=== PATIENT | female | born 1995 | race Caucasian/White ===

== ENCOUNTER → 2022-02-16 17:42 | Outpatient (CLI) | payer BC, SELFPAY ==
--- NOTE | ~2022-02-16 | XR_ITS ---
EXAMINATION: XR sacrum coccyx min 2V DATE: 02/16/2022 18:33 INDICATION: Tailbone pain. TECHNIQUE: 3 views of the sacrum and coccyx were obtained. COMPARISON: None. FINDINGS: Bone alignment is normal. No fracture. The sacroiliac joints are normal. IMPRESSION: 1. Normal sacrum and coccyx. Reviewed, dictated and finalized at location A.
== END ==
PROVIDERS: PCP Family Medicine; Visit Provider Chiropractor
DX: M53.3 Sacrococcygeal disorders, not elsewhere classified (principal)
CPT/HCPCS: 72220

== ENCOUNTER 2022-12-18 14:56 | Emergency (ER) | payer BC, SELFPAY ==
[2022-12-18] VITALS (7 sets, daily range): BP systolic 113–141; BP diastolic 66–97; PULSE 60–77; RESP 15–18; TEMP 36.7–36.8; O2SAT 94–100
--- NOTE | ~2022-12-18 | CT_ITS ---
EXAMINATION: CTA chest PE protocol DATE: 12/18/2022 19:32 INDICATION: Shortness of breath. Chest pain. TECHNIQUE: Computed tomography angiography (CTA) of the chest was performed with 100 mL Omnipaque-350 intravenous contrast timed to evaluate the pulmonary arteries. Coronal maximum intensity projection 3D-reconstructions were created by the technologist. Automated exposure control and iterative reconst ruction technique were employed. The dose-length product was 473.37 mGy-cm. COMPARISON: CT abdomen and pelvis 07/01/2013 FINDINGS: The lungs demonstrate minimal atelectasis. No pleural effusion. The heart size is normal. N o pericardial effusion. There is a small sliding hiatal hernia. There is no pulmonary embolus. The cirilo wan are unremarkable. IMPRESSION: 1. No pulmonary embolus. 2. Small sliding hernia. Reviewed, dictated and finalized at location A. FENCE ERECTOR
--- NOTE | 2022-12-18 17:42 | ED.ABDPAIN ---
HPI - Abdominal Pain General Chief Complaint: Abdominal Pain Stated Complaint: RIGHT FLANK PAIN Time Seen by Provider: 12/18/22 17:36 Source: patient Mode of arrival: ambulatory Limitations: no limitations History of Present Illness HPI narrative: This is a 27 year old , 35 weeks , that presents to the ER for right upper quadrant pain. Ongoing since this morning. Associated with some lightheadedness. Reports the pain is worse with deep breathing and some movement. She has not taken anything for pain. Reports she felt like she was a little more short of breath today as well. She called her OB who prompted her to be seen in the ER to rule out a PE. Denies fever, pelvic cramping, nausea, vomiting, vaginal bleeding, dysuria or hematuria. Related Data Home Medications Medication Instructions Recorded Confirmed aspirin 81 mg tablet,delayed 81 mg PO DAILY 10/06/22 release (Adult Low Dose Aspirin) prenat.vits,prasanna,hxq-yzzr-clqsq 1 tablet PO DAILY 10/06/22 Allergies Allergy/AdvReac Type Severity Reaction Status Date / Time No Known Allergies Allergy Unknown Verified 10/06/22 08:31 Review of Systems Review of Systems: CONSTITUTIONAL: Denies fever, CARDIOVASCULAR: Reports chest pain. Denies edema. RESPIRATORY: Reports dyspnea. Denies cough GASTROINTESTINAL: Reports abdominal pain. Denies nausea, vomiting, or diarrhea. GENITOURINARY: Denies dysuria or hematuria. All systems reviewed & are unremarkable except as noted in HPI and below PMFSH Past Medical History Medical History (Updated 12/18/22 @ 20:56 by Jen Kenney PA-C) No active medical problems Family History Family History (Updated 10/06/22 @ 08:33 by Sujata Laura [facility]) Father Malignant neoplasm of prostate Mother Depression Bipolar disorder Other Hypertension Social History Social History (Updated 10/06/22 @ 08:34 by Sujata Laura [facility]) Smoking status: Never smoker Second hand tobacco smoke exposure: No Alcohol intake: never Substance use: never Substance use type: does not use Exam Narrative: GENERAL: Well-appearing, well-nourished, and in no acute distress. HEAD: Normocephalic, atraumatic. EYES: EOMI. CHEST: Clear to auscultation. No respiratory distress. No wheezes rales or rhonchi HEART: Regular rate and rhythm. No murmur heard. Normal peripheral pulses. ABDOMEN: Gravid, nontender, nondistended, normal active bowel sounds. EXTREMITIES: Normal range of motion. No edema. SKIN: Warm, dry, no rash. NEURO: No focal deficits. Alert and oriented x3. PSYCH: Normal mood and affect Course Vital Signs Vital signs: Vital Signs Temperature 98.0 F 12/18/22 15:31 Pulse Rate 77 12/18/22 15:31 Respiratory Rate 15 12/18/22 15:31 Blood Pressure 140/97 H 12/18/22 15:31 Pulse Oximetry 100 12/18/22 15:31 Oxygen Delivery Room Air 12/18/22 15:31 Temperature 98.3 F 12/18/22 17:07 Pulse Rate 63 12/18/22 20:29 Respiratory Rate 16 12/18/22 20:29 Blood Pressure 132/84 12/18/22 20:29 Pulse Oximetry 100 12/18/22 20:29 Oxygen Delivery Room Air 12/18/22 18:12 MDM - Abdominal Pain MDM Narrative Medical decision making narrative: 27-year-old female, about 35 weeks , presents to the emergency department for right-sided chest pain ongoing today. Reporting some associated shortness of breath. Pain was worse with breathing and movement. She is afebrile and nontoxic-appearing. Oxygen saturation is normal on room air. She is not tachycardic. Lungs are clear on exam. Her initial blood pressure was mildly elevated, this down trended without intervention. CBC with mild leukocytosis to 11.6. Her hemoglobin is normal. Metabolic panel without concerning findings. EKG without concerning changes and baseline troponin is negative. Urine with greater than 75 white blood cells, but also many squamous epithelial cells. This will be sent for culture. Her D-dimer was elevated,
--- NOTE | 2022-12-18 18:01 | ECG_ITS ---
Measurements Intervals [place] Rate: 60 P: 45 [place]: 127 QRS: 71 QRSD: 89 T: 29 QT: 423 QTc: 425 Interpretive Statements SINUS RHYTHM BORDERLINE ST-T WAVE ABNORMALITY- ANT/INF LEADS BORDERLINE ECG NO PREVIOUS ECG AVAILABLE FOR COMPARISON Electronically Signed On 12-18-2022 19:46:34 EMAIL PRODUCER by Stanley Gonzalez D.O.
[2022-12-18 18:22] LABS: Basophils Absolute Auto 0.1 K/mm3 (0.0-0.1); Basophils Percent Auto 0.4 % (0.2-1.2); Eosinophils Absolute Auto 0.1 K/mm3 (0-0.3); Eosinophils Percent Auto 0.8 % (0-4.4); Hemoglobin 12.8 g/dL (12.0-15.0); Immature Granulocyte Absolute 0.02 K/mm3 (0.00-0.031); Immature Granulocyte Percent A 0.2 % (0-0.5); Lymphocytes Absolute Auto 2.66 K/mm3 (0.9-3.2); Mean Corpuscular HGB Conc 33.7 g/dl (32-36); Mean Corpuscular Hemoglobin 28.7 pg (26-34); Mean Corpuscular Volume 85.2 fl (80-100); Monocytes Absolute Auto 0.7 K/mm3 (0.1-0.6); Monocytes Percent Auto 6.1 % (2.6-8.5); Neutrophils Percent Auto 69.5 % (45.5-73.1); Platelet Count Result 326 k/mm3 (150-375); Red Blood Count 4.46 M/mm3 (4.2-5.4); Red Cell Distribution Width 12.2 % (11.5-14.5); White Blood Count 11.6 K/mm3 (4.5-10.0)
[2022-12-18 18:27] LABS: Appearance Urine Slightly Cloudy (Clear); Bilirubin Urine Negative (Negative); Blood Urine Trace-intact (Negative); Color Urine Yellow (Yellow); Glucose Urine UA Negative (Negative); Ketones Urine Negative (Negative); Leukocyte Esterase Ur 3+ LEU/UL (Negative); Nitrate Urine Negative (Negative); Protein Urine Negative (Negative); Urobilinogen Urine 0.2 mg/dL (<2.0); pH Urine 6.5 (5.0-9.0)
[2022-12-18 18:32] LABS: Partial Thromboplastin Time 27.6 SECONDS (22.3-36.8)
[2022-12-18 18:33] LABS: Bacteria Urine Trace /hpf; RBC Urine 21-50 /hpf (0-2); Squamous Epithelial Cell Urine Many /hpf (Few); WBC Urine >75 /hpf
[2022-12-18 18:34] LABS: Add Urine Microscopic? YES
[2022-12-18 18:38] LABS: Alanine Aminotransferase 26 U/L (6-35); Albumin Level 3.8 g/dL (3.5-5.1); Alkaline Phosphatase 175 U/L (38-126); Anion Gap 8 mmol/L (8-16); Aspartate Amino Transferase 29 U/L (14-36); Bilirubin,Total 0.4 mg/dL (0.2-1.3); Blood Urea Nitrogen 8 mg/dL (7-17); Calcium 8.8 mg/dL (8.4-10.2); Carbon Dioxide 23 mmol/L (22-30); Chloride 103 mmol/L (98-107); Estimated CRCL calculation 110 ml/min; Estimated Glomerular Filt Rate > 60; Glucose 76 mg/dL (65-110); Lipase 51 U/L (23-300); Potassium 3.5 mmol/L (3.4-5.0); Sodium 134 mmol/L (137-145)
[2022-12-18] MEDS: SODIUM CHLORIDE 0.9% IV 500 ML 999 ML IV CONT (18:39)
--- NOTE | 2022-12-18 18:39 | PC.NURSE ---
OB at bedside to monitor baby.
[2022-12-18 18:41] LABS: D Dimer 1.21 ug/mL (<0.48)
[2022-12-18 18:48] LABS: Troponin I < 0.012 ng/mL (0.000-0.034)
--- NOTE | 2022-12-18 19:06 | PC.NURSE ---
182- RN at bedside to perform NST. 1849- NST was reactive, Dr. Edwards notified. Dr. Edwards notified of contractions during NST. No additional orders for monitoring. 1850- labor precautions were reviewed with patient. Patient stated understanding of labor precautions. HIP precautions reviewed with patient and patient states understanding. Patient denies any further questions.
== END 2022-12-18 21:17 | disposition home or self-care (01) ==
PROVIDERS: Emergency Provider Physician Assistant; PCP Family Medicine
DX: O26.893 Other specified pregnancy related conditions, third trimester (principal); R07.89 Other chest pain; O99.613 Diseases of the digestive system complicating pregnancy, third trimester; K44.9 Diaphragmatic hernia without obstruction or gangrene; R94.31 Abnormal electrocardiogram [ECG] [EKG]; Z3A.35 35 weeks gestation of pregnancy
CPT/HCPCS: 36415; 71275; 80053; 81001; 83690; 84484; 85025; 85380; 85610; 85730; 87086; 87088; 93005; 96361; 96365; 99284; J0131; J7040; Q9967

== ENCOUNTER 2023-01-03 12:05 | Inpatient (IN) | payer BC, SELFPAY ==
[2023-01-03] VITALS (41 sets, daily range): BP systolic 119–151; BP diastolic 57–97; PULSE 58–97; RESP 18–20; TEMP 36.5–37.1; BMI 31.0
[2023-01-03 10:48] LABS: Basophils Absolute Auto 0.1 K/mm3 (0.0-0.1); Basophils Percent Auto 0.6 % (0.2-1.2); Eosinophils Absolute Auto 0.1 K/mm3 (0-0.3); Eosinophils Percent Auto 1.1 % (0-4.4); Hematocrit 37.7 % (37.0-47.0); Hemoglobin 12.7 g/dL (12.0-15.0); Immature Granulocyte Absolute 0.03 K/mm3 (0.00-0.031); Immature Granulocyte Percent A 0.3 % (0-0.5); Lymphocytes Absolute Auto 1.85 K/mm3 (0.9-3.2); Lymphocytes Percent Auto 20.4 % (18.3-44.2); Mean Corpuscular HGB Conc 33.7 g/dl (32-36); Mean Corpuscular Volume 86.1 fl (80-100); Mean Platelet Volume 10.7 fl (7.4-10.4); Monocytes Absolute Auto 0.7 K/mm3 (0.1-0.6); Monocytes Percent Auto 7.3 % (2.6-8.5); Neutrophils Absolute Auto 6.4 K/mm3 (1.3-6.7); Neutrophils Percent Auto 70.3 % (45.5-73.1); Platelet Count Result 363 k/mm3 (150-375); Red Blood Count 4.38 M/mm3 (4.2-5.4); Red Cell Distribution Width 12.6 % (11.5-14.5); White Blood Count 9.1 K/mm3 (4.5-10.0)
[2023-01-03 10:48] LABS: Appearance Urine Clear (Clear); Bilirubin Urine Negative (Negative); Blood Urine Trace-intact (Negative); Color Urine Yellow (Yellow); Glucose Urine UA Negative (Negative); Ketones Urine Negative (Negative); Leukocyte Esterase Ur 2+ LEU/UL (NEGATIVE); Nitrate Urine Negative (Negative); Protein Urine Negative (Negative); Specific Grav Ur 1.015 (1.001-1.035); Urobilinogen Urine 0.2 mg/dL (<2.0); pH Urine 7.5 (5.0-9.0)
[2023-01-03 10:55] LABS: Bacteria Urine Trace /hpf; Creatinine Urine 18.9 mg/dL; Squamous Epithelial Cell Urine Many /hpf (Few); Total Protein Urine Random 13 mg/dL; Ur Ttl Prot Creatinine Ratio 0.69 mg/mg (0-0.20); WBC Urine 21-30 /hpf (0-3)
[2023-01-03 10:56] LABS: Add Urine Microscopic? YES
[2023-01-03 10:59] LABS: Alanine Aminotransferase 32 U/L (6-35); Albumin Level 4.3 g/dL (3.5-5.1); Alkaline Phosphatase 227 U/L (38-126); Anion Gap 7 mmol/L (8-16); Aspartate Amino Transferase 34 U/L (14-36); Bilirubin,Total 0.4 mg/dL (0.2-1.3); Blood Urea Nitrogen 11 mg/dL (7-17); Calcium 9.2 mg/dL (8.4-10.2); Carbon Dioxide 26 mmol/L (22-30); Chloride 99 mmol/L (98-107); Estimated Glomerular Filt Rate > 60; Glucose 80 mg/dL (65-110); Potassium 3.8 mmol/L (3.4-5.0); Sodium 132 mmol/L (137-145); Uric Acid 6.4 mg/dL (2.5-7.5)
--- NOTE | 2023-01-03 14:05 | LDADM ---
This patient, Jennie Diaz, was admitted to Labor/Delivery/Recovery 105 on 01/03/23 at 12:05. Plans for labor, pain management and were discussed with patient. Patient/family oriented to hospital policies and general routines including ID bracelet, bed and alarms, visiting hours, pain management, procedures, bathroom and other care routines, personal items, smoking policy, room service/diet and guest tray routines, infant security routines, and visiting hours. Patient/Family are encouraged to report perceived risks to care and to ask questions if they do not understand what they are told or what they should do. See OBIX for further documentation.
[2023-01-03] MEDS: LACTATED RINGERS 1,000 ML 125 ML IV CONT (14:39)
[2023-01-03] MEDS: OXYTOCIN 30 UNITS/NS 500 ML 30 UNITS/500 ML BAG IV CONT (14:39)
--- NOTE | 2023-01-03 21:05 | WPDANESEPN ---
Anes - Epidural Procedure Note Date/Time: 01/03/23 21:05 Consent: I have discussed with the patient/family/POA, the placement of an epidural catheter and the use of epidural narcotic/local anesthetic for labor analgesia and/or postoperative pain management, including associated potential risks, benefits, complications and side effects. I have discussed alternative methods of labor analgesia and/or postoperative pain management. The patient/family/POA, understand(s) and wish(es) to proceed with epidural narcotic/local anesthetic for labor analgesia and/or postoperative pain management. Time-Out: A pre-procedural Time-Out was completed immediately before starting the procedure and confirmed: Patient Identification, Site, Procedure, Patient Position and the Availability of Requisite Equipment. Clinical Indications: Pain c contractions Epidural Insertion Note Patient position: sitting Skin prep: chlorhexidine and sterile drape Needle: 18g Tuohy-Schliff Catheter: 20g Unstyleted Technique: Loss of resistance. Level of insertion: L4/5 Catheter skin dea (cm): 6 Length in epidural space (cm): 11 Skin anesthesia: lidocaine 1% Test dose: 1.5% Lidocaine with 1:692030 Epi, negative for subarachnoid Inj and negative for intravascular Inj Time of test dose: 20:49 Observations: tolerated well
[2023-01-04] VITALS (68 sets, daily range): BP systolic 108–155; BP diastolic 53–120; PULSE 59–98; RESP 14–16; TEMP 36.2–37; O2SAT 93–100
--- NOTE | 2023-01-04 07:07 | WPDOBADMIT ---
Obstetrics - Admit Note Admission Note: record reviewed. No pertinent additions to the history and/or any subsequent changes in the physical findings that are not consistent with the expected course of the were found. Pt admitted to for IOL, Pt has had 2 elevated blood pressures over 4 hours apart and had blurry vision all day Monday, pt currently denies michel, epigastric pain. PCR >0.6, Dr. Ortiz aware and co managing care. SVE 3/70/-2 AROM clear odorless fluid, anticipate vaginal delivery Additions to the history and/or subsequent changes in the physical findings follow. None.
[2023-01-04] MEDS: diphenhydrAMINE HCl INJ 50 MG/ML VIAL 25 MG IV PUSH (16:12)
[2023-01-04] MEDS: ONDANSETRON INJ 4 MG/2 ML VIAL IV PUSH (16:17)
[2023-01-04 16:22] LABS: Rapid Plasma Reagin Non-Reactive (NonReactive)
[2023-01-04] MEDS: LACTATED RINGERS 1,000 ML 125 ML IV CONT (17:11)
[2023-01-04] MEDS: OXYTOCIN 30 UNITS/NS 500 ML 30 UNITS/500 ML BAG 999 UNITS IV CONT (18:30)
[2023-01-04] MEDS: OXYTOCIN 30 UNITS/NS 500 ML 30 UNITS/500 ML BAG 125 UNITS IV CONT (18:56)
--- NOTE | 2023-01-04 18:58 | PM.OBPRVD ---
OB - Delivery Note Procedure Delivery date: 01/04/23 Procedure: Events: Preeclampsia w/o severe features Induction method: Per Pitocin Protocol Delivery augmentation: Rupture of Membranes Delivery monitor: None Route of delivery: Laceration Description: Perineal - 2nd Degree Delivery repair: vicryl Specimen: No Quantitative Blood Loss (ml): 50 Anesthesia type: Epidural Disposition: Floor Narrative: mom and baby stable and doing skin to skin [place] Baby Date of : 01/04/23 Time of : 18:17 Weeks of gestation at delivery: 37 gender: Female Weight (pounds): 6 Weight (ounces): 13 presentation: vertex position: Left Occiput Anterior Placenta delivery description: Spontaneous Cord Vessel Description: 3 Vessels, Clamped/Cut and Delayed Cord Clamping score one minute: 7 score five minutes: 9
--- NOTE | 2023-01-04 19:55 | WPDANESEPN ---
Anes - Epidural Procedure Note Date/Time: 01/04/23 1700 Consent: I have discussed with the patient/family/POA, the placement of an epidural catheter and the use of epidural narcotic/local anesthetic for labor analgesia and/or postoperative pain management, including associated potential risks, benefits, complications and side effects. I have discussed alternative methods of labor analgesia and/or postoperative pain management. The patient/family/POA, understand(s) and wish(es) to proceed with epidural narcotic/local anesthetic for labor analgesia and/or postoperative pain management. Time-Out: A pre-procedural Time-Out was completed immediately before starting the procedure and confirmed: Patient Identification, Site, Procedure, Patient Position and the Availability of Requisite Equipment. Clinical Indications: Pain c contractions Epidural Insertion Note Patient position: sitting Skin prep: chlorhexidine and sterile drape Needle: 18g Tuohy-Schliff Catheter: 20g Unstyleted Technique: Loss of resistance. Level of insertion: L3/4 Catheter skin dea (cm): 4 Length in epidural space (cm): 9 Skin anesthesia: lidocaine 1% Test dose: 1.5% Lidocaine with 1:967730 Epi, negative for subarachnoid Inj and negative for intravascular Inj Time of test dose: 17:04 Observations: tolerated well Complications: none
[2023-01-04] MEDS: WITCH HAZEL 40 PADS 1 PAD TOPICAL (21:25)
[2023-01-04] MEDS: BENZOCAINE 20% AER SPR (*SP) 56 GM CAN 1 SPRAY TOPICAL (21:25)
--- NOTE | 2023-01-04 21:30 | PC.NURSE ---
Patient transferred to post room #281 via wheelchair. Support person present. Oriented to unit, room, information board, rooming in, admission packet and security measures. Patient verbalizes understanding.
[2023-01-04] MEDS: IBUPROFEN 600 MG TABLET PO (23:57)
[2023-01-05 04:15] VITALS: BP 124/71; PULSE 58; RESP 16; TEMP 36.6; O2SAT 98
[2023-01-05 05:32] LABS: Hematocrit 31.2 % (37.0-47.0); Hemoglobin 10.5 g/dL (12.0-15.0)
--- NOTE | 2023-01-05 07:30 | PC.NURSE ---
PT introductions made and plan of care discussed per post , pain management, breast feeding, daily care activities. PT and spouse both recipients of such instructions and no barriers to learning identified at this time. PT received such instructions this shift per one to one discussion, mom baby care guide and demonstrations. PT verbalized understanding of such care.
[2023-01-05 07:40] VITALS: BP 128/82; PULSE 100; RESP 15; TEMP 36.5; O2SAT 100
--- NOTE | 2023-01-05 07:59 | PM.OBPNVD ---
OB - PN: Subj Subjective Date/time seen: 01/05/23 07:59 Patient comments: no complaints baby status: doing well OB - PN: Obj Data Labs 01/05/23 04:21 01/03/23 10:28 Labs: Laboratory Results - last 24 hr 01/03/23 01/05/23 13:59 04:21 Hgb 10.5 L Hct 31.2 L RPR Non-reactive OB - PN A/P Plan day: 1 Plan: routine care Time Spent With Patient Time: Total time spent is greater than 50% in coordination of care (as documented) at patient's floor/unit and/or counseling patient: Time with patient: less than 15 minutes Review of Systems Review of Systems: All systems reviewed & are unremarkable except as noted in HPI and below Exam Narrative: Fundus firm and vaginal flow controlled. No lower ext redness, warmth, or edema. Negative homans. Denies h/a, v/d or e/p. Reflexes normal. Const: General: comfortable Chest: Breast/axilla inspection: normal inspection of the breasts Resp: Effort & Inspection: normal respiratory effort Cardio: Rate: regular rate GI: GI Palp: Yes Soft to palpation Psych: Appearance: grossly normal Affect: normal affect Attitude: cooperative Thought content: Yes Normal thought content present Judgement: Good judgement present (Psych)
--- NOTE | 2023-01-05 08:40 | WPDANLDPN2 ---
Anes-Prog Note L&D Date/Time: 01/05/23 08:40 Comfortable throughout: labor and delivery Neuraxial method: epidural Epidural/Spinal procedure site: clean & non-tender Neuro status: Neuro function grossly intact. Cardiovascular status: normal Respiratory status: normal Airway patency: baseline Mental status: baseline Post-Op hydration status: normal Vital Signs: Last Vital Signs Temp 97.9 F 01/05/23 04:15 Pulse 58 L 01/05/23 04:15 Resp 16 01/05/23 04:15 BP 124/71 01/05/23 04:15 Pulse Ox 98 01/05/23 04:15 O2 Del Method Room Air 01/03/23 14:04 Pain score (VAS): 0 I/O: Intake & Output 01/04/23 01/05/23 01/05/23 23:59 07:59 15:59 Intake Total 500 1200 Output Total 256 1900 Balance 244 -700 Post-procedural complaints: none Patient feedback: Patient satisfied with anesthetic care.
[2023-01-05] MEDS: IBUPROFEN 600 MG TABLET PO ×2 (09:26→15:19)
[2023-01-05 09:28] VITALS: PULSE 100; RESP 15; O2SAT 100
[2023-01-05] MEDS: LANOLIN (LANSINOH) 7.5 GM CREAM 1 APPLIC TOPICAL (09:28)
[2023-01-05] MEDS: DOCUSATE SODIUM 100 MG CAPSULE PO ×2 (09:28→15:19)
[2023-01-05] MEDS: MULTIVIT/MIN/PREN/FOL AC/IRON TABLET 1 TAB PO (09:28)
[2023-01-05 11:05] VITALS: BP 131/77; PULSE 95; RESP 18; TEMP 36.9; O2SAT 100
--- NOTE | 2023-01-05 15:25 | PC.NURSE ---
[phone] Mother called for questions to be answered. is in the nursery. Reviewed signs of appropriate intake using the pie demonstration. Mother will call for assistance with the next session to have RN assess the latch. [phone] Consulted with patient to assess needs related to . Mother works well with her with encouragement. Encouraged understanding of the benefits of skin to skin (demonstrating unwrapping infant and placing upright on her chest), stimulating with massage touch, changing positions to encourage wakefulness, how to watch for early feeding cues, responsive feeding, feeding on demand (aiming for 8-12 times in 24 hours, about every 2-3 hours), milk production, building/maintaining a milk supply, duration of feeding, signs of adequate intake/output and how to record on the feeding sheet. Reviewed positioning and ear, shoulder, hip alignment, supporting the breast to facilitate a deep latch, asymmetrical latch (off-center), leading with the chin with a big, open, wide gape and body close to mother. Infant latched to the left breast in football position. Education given to mother of how to visualize suck/swallow ratios and listen for drinking at the breast. was able to maintain latch without discomfort to mother. was detached and nipple was slightly misshaped. placed skin to skin and when feeding cues were visualized infant was brought to the right breast using football positioning and breastfed effectively with no pain to mother and no misshaped nipple. Nipple care reviewed with optimal latch and good positioning. Reminding mother of comfort measures of healing with a warm and wet washcloth to rinse breast, then leave open to air-dry as needed cold compress after feeding, changing positioning while learning to breastfeed and learn to optimal latching. Reviewed good handwashing when or touching the breast/nipples to prevent infection. Resources used to facilitate learning were used with the tool, [facility] website, mom and baby guide. Mother voiced understanding of skin to skin, stimulating with massage touch, responsive feedings, hand expressed colostrum, talking to to encourage if it has been 2 -2.5 hours since the start of the last , to call if does not latch, or if there is discomfort with . Resources provided for inpatient/outpatient with the mom/baby guide. Parents voiced understanding of information, demonstrated learning and will call if there is a request for assistance. Reported to primary RN.
[2023-01-05 20:00] VITALS: BP 129/71; PULSE 64; RESP 18; TEMP 36.4; O2SAT 99
[2023-01-06] VITALS: BP 125/79
[2023-01-06 04:00] VITALS: BP 135/81
[2023-01-06 07:09] VITALS: BP 121/84; PULSE 75; RESP 18; TEMP 36.8; O2SAT 100
--- NOTE | 2023-01-06 07:23 | PM.OBPNVD ---
OB - PN: Subj Subjective Date/time seen: 01/06/23 07:23 s/p vaginal delivery day 2 OB - PN: Obj Data Labs 01/05/23 04:21 01/03/23 10:28 OB - PN A/P Plan day: 2 Plan: routine care and discharge home Time Spent With Patient Time: Total time spent is greater than 50% in coordination of care (as documented) at patient's floor/unit and/or counseling patient: Review of Systems Review of Systems: All systems reviewed & are unremarkable except as noted in HPI and below Exam Const: General: cooperative, healthy appearing and comfortable
--- NOTE | 2023-01-06 07:25 | PM.OBDSVD ---
DS: Admitting Diagnosis Discharge Date 01/06/23 Admitting Diagnosis IOL, PIH DS: Discharge Diagnosis Discharge Diagnosis (1) Vaginal delivery: Code(s): O80 - Encounter for full-term uncomplicated delivery Status: Acute OB - DS: Summary OB Procedures : None OB Procedures Intrapartum: Spontaneous Vag Delivery OB Procedures: : None Time Spent with Patient Time attestation: Total time spent providing and/or coordinating discharge services: DS: Data Data Completed and Pending Pending studies at discharge: Pending at discharge 01/04/23 18:26 Surgical [PTH] Routine Discharge Plan Discharge Attending physician on discharge: Dakotah Ortiz Discharging Clinician: Caridad Pichardo Patient Disposition: Home, Self-Care Activity: pelvic rest Diet: regular Discharge Instructions: Education: Mom and Baby Guide Given to: Mother Follow-Up: Call your delivering provider's office for an appointment to be seen in: 1 Week Mom and baby should come to the [facility] for the follow-up appointment. Appointment Date/Time: January 07, 2023 at 10:00 am What to expect at your follow-up visit: Blood Pressure Check Physical Assessment Call [phone] if you are unable to keep your appointment time. BREAST CARE: * Wear a snug supportive bra. * For engorgement discomfort: Breast Feeding: * Apply warm moist washcloths * Express milk as needed to relieve engorgement * Wear loose clothing * For sore nipples: * Identify correct latch-on * Apply warm moist washcloths before and after nursing * Air dry nipples after nursing * May apply Lansinoh cream to nipples EPISIOTOMY/PERINEAL CARE: * Until bleeding stops, use your jay bottle after urinating * Change your pad frequently throughout the day * You may take sitz baths several times a day (fill your bathtub with warm water and soak for 20 minutes.) Do NOT bathe in the water * No tub baths until seen by your physician - You may shower ACTIVITY: * Rest as much as possible. * Do not exercise or lift anything heavier than your baby (such as laundry or other children.) * Avoid stairs or driving as much as possible. * Do not put anything into the vagina. No douching, tampons, or sexual activity until seen by physician. NOTIFY PHYSICIAN IF YOU HAVE ANY QUESTIONS OR IF ANY OF THE FOLLOWING SYMPTOMS OCCUR: * If your vaginal delivery becomes red, swollen, or more painful than what you have experienced in the hospital. * If your vaginal bleeding becomes foul smelling. * If your vaginal bleeding becomes more heavy than a period or if your bleeding changes from pink to bright red. However, you may pass an occasional walnut-sized clot once or twice for the first week . * If you experience a sharp, shooting pain in your calves. * If you discover a hard, reddened area on your breast or if you experience flu-like symptoms. DIET: * Eat regular, well-balanced meals. * Drink plenty of fluids daily. If , drink to thirst. Patient Instructions: Antibiotic Form, Caring for Your Baby (DC), Vaginal Delivery (DC) Stand Alone Forms: General Discharge Information Follow-up/Referrals: Caridad Pichardo CNM [Certified Nurse Lead Software Development Engineer] - Discharge Medications: New ibuprofen 600 mg Tablet 600 mg PO Q6H PRN (Reason: Cramping) Qty: 30 0RF Continued prenat.vits,prasanna,sqv-ctpy-foves Tablet 1 tablet PO DAILY valacyclovir 1 gram tablet 2,000 mg PO DAILY Qty: 30 0RF Discontinued aspirin [Adult Low Dose Aspirin] 81 mg tablet,delayed release (DR/EC) 81 mg PO DAILY Date of admission: 01/03/23 12:05 Primary Care Provider: Stephani Willis Admitting Provider: Dakotah Ortiz Attending physician on admission: Dakotah Ortiz Condition: Stable
[2023-01-06] MEDS: DOCUSATE SODIUM 100 MG CAPSULE PO (08:30)
[2023-01-06] MEDS: BENZOCAINE 20% AER SPR (*SP) 56 GM CAN 1 SPRAY TOPICAL (08:30)
[2023-01-06] MEDS: MULTIVIT/MIN/PREN/FOL AC/IRON TABLET 1 TAB PO (08:30)
[2023-01-06] MEDS: WITCH HAZEL 40 PADS 1 PAD TOPICAL (08:30)
[2023-01-06 11:00] VITALS: PULSE 75; RESP 18; O2SAT 100
[2023-01-06] MEDS: IBUPROFEN 600 MG TABLET PO (11:10)
--- NOTE | 2023-01-06 14:18 | PC.NURSE ---
[id number] Mother led the conversation with her experience and plan to feed her so far and is demonstrating her ability to effectively breastfeed her infant to the left breast using cross cradle positioning with no pain. Reminded parents to use good handwashing technique to prevent infection. Mother is feeding appropriately for growth of and understands stimulating to eat if needed. Infant has had appropriate feedings in the last 24 hours meets the outcomes for weight, output and jaundice at this time. Mother states she is confident to continue effectively her at home, when to call for assistance and denies any additional assistance or education at this time. Reinforced understanding of milk production, transition of milk, signs of adequate intake, transition of stool, prevention/relief of engorgement, responsive watching for feeding cues, the different methods of stimulating infant to breastfeed 2-3 hours after the start of the last feeding, late care behaviors, community resources, medication information reviewed per [employer] and when to call a provider using the resource of the mom and baby guide/[facility] website. Parents voiced understanding of the education shared.
[2023-01-07 10:31] VITALS: BP 124/80; PULSE 73; RESP 18; TEMP 37.1; O2SAT 98
== END 2023-01-06 12:30 | disposition home or self-care (01) | DRG 807 ==
LOC: ANHOBOP 12:06 → ANHOB2 01-05 07:37 → ANHLDR 01-09 09:29 → ANHOB2 01-09 09:29 → ANHOBPP 01-09 09:29
PROVIDERS: Advanced Practice Midwife; Admitting Provider Advanced Practice Midwife; PCP Family Medicine; Visit Provider Advanced Practice Midwife
DX: O14.04 Mild to moderate pre-eclampsia, complicating childbirth (principal); Z37.0 Single live birth; O76 Abnormality in fetal heart rate and rhythm complicating labor and delivery; O69.81X0 Labor and delivery complicated by cord around neck, without compression, not applicable or unspecified; O70.1 Second degree perineal laceration during delivery; Z3A.37 37 weeks gestation of pregnancy
CPT/HCPCS: 36415; 59025; 80053; 81001; 82570; 84156; 84550; 85014; 85018; 85025; 86592; 86850; 86900; 86901; 87086; 87088; 88307; A9270; J1200; J2405; J2590; J2795; J7120

== ENCOUNTER 2024-12-19 11:32 | Emergency (ER) | payer BC, SELFPAY ==
[2024-12-19 11:37] VITALS: BP 119/77; PULSE 89; RESP 16; TEMP 36.4; O2SAT 100
--- NOTE | 2024-12-19 12:11 | ED_ITS ---
HPI - Abdominal Pain General Chief Complaint: Abdominal Pain Stated Complaint: abd pain x1w Time Seen by Provider: 12/19/24 12:11 Focused HPI: This is a 29 year old female that presents to the ER for abdominal pain, back pain, fevers. Ongoing over the last week. Seen at urgent care and sent to the ER for further evaluation. Reports congestion. GENERAL: Actively vomiting HEAD: Normocephalic, atraumatic. CHEST: Clear to auscultation. ?No respiratory distress. HEART: Regular rate and rhythm.? NEURO: ?Alert and oriented x3. Patient screened in triage and initial orders placed.? ?Additional care and disposition to be based upon?diagnostic testing and treatment. Related Data Allergies Allergy/AdvReac Type Severity Reaction Status Date / Time No Known Allergies Allergy Unknown Verified 12/19/24 11:33 Review of Systems 2 Review of Systems: CONSTITUTIONAL: Denies fever ENT: Reports congestion CARDIOVASCULAR: Denies chest pain RESPIRATORY: Denies dyspnea. GASTROINTESTINAL: Reports nausea, vomiting, and diarrhea All systems reviewed & are unremarkable except as noted in HPI and below PMFSH Past Medical History Medical History No active medical problems Family History Family History Father Malignant neoplasm of prostate Mother Bipolar disorder Depression Social History Social History Smoking status: Never smoker Second hand tobacco smoke exposure: No Alcohol intake: never Substance use: never Substance use type: does not use Lack of Transportation: No Lack of Food: Never True Current Housing: I Have Housing Concerned About Future Housing: No Difficulty Paying Gas/Electric Bills: No Difficulty Paying for Meds: No Currently Unemployed: No Education: Master's Degree or Higher Difficulty w/ Childcare or Family Care: No Spiritual care concerns: No Exam 2 Narrative: GENERAL: Well-appearing, well-nourished, and in no acute distress. HEAD: Normocephalic, atraumatic. EYES: EOMI. CHEST: Clear to auscultation. No respiratory distress. No wheezes rales or rhonchi HEART: Regular rate and rhythm. No murmur heard. Normal peripheral pulses. EXTREMITIES: Normal range of motion. No edema. SKIN: Warm, dry, no rash. NEURO: No focal deficits. Alert and oriented x3. PSYCH: Normal mood and affect Course Course Emergency Course: patient updated on her workup and agrees with plan of care Vital Signs Vital signs: Vital Signs Temperature 97.6 F 12/19/24 11:37 Pulse Rate 89 12/19/24 11:37 Respiratory Rate 16 12/19/24 11:37 Blood Pressure 119/77 12/19/24 11:37 Pulse Oximetry 100 12/19/24 11:37 Temperature 97.6 F 12/19/24 11:37 Pulse Rate 89 12/19/24 11:37 Respiratory Rate 16 12/19/24 11:37 Blood Pressure 119/77 12/19/24 11:37 Pulse Oximetry 100 12/19/24 11:37 MDM - Abdominal Pain MDM Narrative Medical decision making narrative: patient presents to the ER for viral symptoms ongoing over the last couple of days. She is afebrile and nontoxic appearing. Her vitals are normal. CBC without concerning findings. Metabolic panel shows mild transaminitis. COVID test positive, likely source of transaminitis. Urine without evidence for infection. patient updated on her workup and agrees with plan of care. Instructed on further care of viral infection. She was given warnings to return to the ER Differential Diagnosis Differential diagnosis: Likely other (covid 19, influenza, viral syndrome) Lab Data Attestation: I reviewed the patient's lab results. 12/19/24 12:16 12/19/24 12:16 Labs: Lab Results 12/19/24 12/19/24 12/19/24 Range/Units 12:16 13:35 13:37 WBC 6.0 (4.5-10.0) K/mm3 RBC 4.97 (4.2-5.4) M/mm3 Hgb 14.6 D (12.0-15.0) g/dL Hct 43.2 (37.0-47.0) % MCV 86.9 (80-100) fl MCH 29.4 (26-34) pg MCHC 33.8 (32-36) g/dl RDW 12.5 (11.5-14.5) % Plt Count 235 (150-375) k/mm3 MPV 9.9 (7.4-10.4) fl Immature Gran % (Auto) 0.3 (0-0.5) % Neut % (Auto) 50.9 (45.5-73.1) % Lymph % (Auto) 41.2 (18.3-44.2) % Evans % (Auto) 5.3 (2.6-8.5) % Eos % (Auto) 2.0 (0-4.4) % Baso % (Auto) 0.3 (0.2-1.2) % Lymph # (Auto) 2.49 (0.9-3.2) K/mm3 Evans # (Auto) 0.3 (0.1-0.6) K/mm3 Eos # (Auto) 0.1 (0-0.3) K/mm3 Baso # (Auto) 0.0 (0.0-0.1) K/mm3 Abs Immat Gran (auto) 0.02 (0.00-0.031) K/mm3 Absolute Neuts (auto) 3.1 (1.3-6.7) K/mm3 Absolute Nucleated RBC 0.000 (0.0-0.012) K/mm3 Nucleated RBC % 0.0 (0.0-0.2) % Sodium 136 L (137-145) mmol/L Potassium 4.1 (3.4-5.0) mmol/L Chloride 101 (98-107) mmol/L Carbon Dioxide 25 (22-30) mmol/L Anion Gap 10 (4-12) mmol/L BUN 8 (7-17) mg/dL Creatinine 0.65 L (0.7-1.0) mg/dL Estim Creat Clear Calc Not Reportable Estimated GFR > 60 (59 - ) Glucose 101 (65-110) mg/dL Calcium 9.0 (8.4-10.2) mg/dL Total Bilirubin 0.6 (0.2-1.3) mg/dL AST 54 H (14-36) U/L ALT 56 H (6-35) U/L Alkaline Phosphatase 74 (38-126) U/L Total Protein 8.0 (6.3-8.2) g/dL Albumin 4.6 (3.5-5.1) g/dL Lipase 50 (23-300) U/L Urine Color Yellow (Yellow) Urine Appearance Clear (Clear) Urine pH 6.0 (5.0-9.0) Ur Specific Steele 1.003 (1.001-1.035) Urine Protein Negative (Negative) mg/dL Urine Glucose (UA) Negative (Negative) mg/dL Urine Ketones Negative (Negative) mg/dL Ur Blood (Man) Negative (Negative) Urine Nitrate Negative (Negative) Urine Bilirubin Negative (Negative) Urine Urobilinogen 0.2 (<2.0) mg/dL Leukocyte Esterase Rfl Trace H (Negative) REBECA/UL Urine RBC 0-2 (0-2) /hpf Urine WBC 0-5 (0-3) /hpf Ur Squamous Epith Cells None seen (Few) /hpf Urine Bacteria None seen /hpf Urine Casts 0-2 POC Urine HCG, Qual Negative (Negative) Influenza A (RT-PCR) Negative (Negative) Influenza B (RT-PCR) Negative (Negative) RSV (RT-PCR) Negative (Negative) SARS-CoV-2 RNA (RT-PCR) Positive A (Negative) Critical Care Time Critical Care Time Critical Care Time: No Discharge Plan Discharge Clinical Impression: COVID-19 Patient Disposition: Home, Self-Care Condition: Stable Instructions: COVID-19 (Coronavirus Disease 2019) (ED), How to Recover from COVID-19 at Home (ED) Additional Instructions: Return to the emergency department for worsening symptoms, or any other concerns Remain well-hydrated, get plenty of rest. Take Tylenol or Motrin [id number] for pain as needed. Flonase for nasal congestion. Zyrtec for runny nose. Lozenges or Chloraseptic spray for sore throat. Ondansetron as needed for nausea Follow up with your primary care doctor Patient Language: Latvian Prescriptions: New ondansetron 4 mg tablet,disintegrating 4 mg PO Q8H PRN (Reason: nausea and vomiting) Qty: 10 0RF Follow-up/Referrals: Stephani Willis MD [Primary Care Provider] -
[2024-12-19] MEDS: ONDANSETRON HCL ODT 4 MG TABLET PO (12:16)
--- OUTSIDE RECORDS SUMMARY | 2024-12-19 12:31 | XMS_ITS | Data Portability ---
Author Organization [facility] Address [address] [place] [address] [place] [address] Care Team Providers Care Chief Concierge Name Role Phone CHELY ARMENTA Primary Care Provider [phone] Assessment Encounter Date Assessment Date Assessment LastModified by Organization Details LastModified Time 12/30/2022 12/30/2022 Patient is _36__weeks . Discussed plan. Not available 12/30/2022 10:40:20 04/12/2023 04/12/2023 call if sxs worsen or do not resolve f/u wwe Not available 04/12/2023 14:56:51 Plan of Treatment Reminders Order Date Submit Date Provider Last Modified By Organization Details Last Modified Time Details Appointments [facility] 2024 10:00A M Caridad Pichardo CNM Not available Not available Not available Lab None recorded. Referral None recorded. Procedures None recorded. Surgeries None recorded. Imaging non-stres s test 2022 023 [place] [facility] [address], [address], [place], [address], 01/03/2023 11:08:19 Medication Orders metronida zole 500 mg tablet 2022 023 [email or web address] [id number], [address] [place], [address], 02/15/2023 09:30:54 Estrace 0.01% (0.1 mg/gram) vaginal cream 2022 023 [id number], [address] [place], [address], 04/12/2023 14:54:32 metronida zole 500 mg tablet 2022 023 [id number], [address] [place], [address], 04/12/2023 14:53:07 Patient TargetsNo targets recorded. Patient InstructionsNo instructions recorded. Reason for Referral None Reported. Results Created Date Observation Date Name Description Value Unit Range Abnormal Flag Note LastModifiedBy Organization Detail LastModifiedTime 12/21/1912/21/2022 CBC W/DIF F WBC 10.5 10'3/ uL 3.6-10 .2 high Not Available [facility] (Lab) [address], [place], [address], 12/22/2022 04:15:38 12/21/19 23 12/21/2022 CBC W/DIF F RBC 4.06 10'6/ uL (based on docume nted legal sex) 4.10-5 .30 low Not Available [facility] (Lab) [address] , [place], [address], 12/22/2022 04:15:38 12/21/19 23 12/21/2022 CBC W/DIF F HGB 11.9 g/dL (based on docume nted legal sex) 11.9-1 5.8 Not Available [facility] (Lab) [address] , [place], [address], 12/22/2022 04:15:38 12/21/19 23 12/21/2022 CBC W/DIF F HCT 35.2 % (based on docume nted legal sex) 37.4-4 8.3 low Not Available [facility] (Lab) [address] [place], [address], 12/22/2022 04:15:38 02/01/12/21/2022 CBC W/DIF F MCV 86.7 fL 82.0-9 9.0 Not Available [facility] (Lab) [address], [place], [address], 12/22/2022 04:15:38 12/21/19 23 12/21/2022 CBC W/DIF F MCH 29.3 pg 27.0-3 3.0 Not Available [facility] (Lab) [address], [place], [address], 12/22/2022 04:15:38 12/21/19 23 12/21/2022 CBC W/DIF F MCHC 33.8 g/dL 32.0-3 6.0 Not Available [facility] (Lab) [address], [place], [address], 12/22/2022 04:15:38 12/21/19 23 12/21/2022 CBC W/DIF F RDW 12.3 % 11.0-1 5.0 Not Available [facility] (Lab) [address], [place], [address], 12/22/2022 04:15:38 12/21/19 23 12/21/2022 CBC W/DIF F plt 322 10'3/ uL 150-45 0 Not Available [facility] (Lab) [address], [place], [address], 12/22/2022 04:15:38 12/21/19 23 12/21/2022 CBC W/DIF F MPV 10.6 fL 9.8-12 .7 Not Available [facility] (Lab) [address], [place], [address], 12/22/2022 04:15:38 12/21/19 23 12/21/2022 CBC W/DIF F NRBC's 0.0 % 0 Not Available [facility] (Lab) [address], [place], [address], 12/22/2022 04:15:38 12/21/19 23 12/21/2022 CBC W/DIF F absolute NRBCs 0.0 10'3/ uL 0 Not Available [facility] (Lab) [address] [facility], [place], [address], 12/22/2022 04:15:38 12/21/19 23 12/21/2022 CBC W/DIF F neutrophils 66.1 % 37.0-7 2.0 Not Available [facility] (Lab) [address] [facility], [place], [address], 12/22/2022 04:15:38 12/21/19 23 12/21/2022 CBC W/DIF F lymphocytes 23.2 % 16.0-4 8.0 Not Available [facility] (Lab) [address] [facility], [place], [address], 12/22/2022 04:15:38 12/21/19 23 12/21/2022 CBC W/DIF F monocytes 8.1 % 4.0-14 .0 Not Available [facility] (Lab) [address] [facility], [place], [address], 12/22/2022 04:15:38 12/21/19 23 12/21/2022 CBC W/DIF F eosinophils 1.8 % 0.0-9. 0 Not Available [facility] (Lab) [address] [facility], [place], [address], 12/22/2022 04:15:38 12/21/19 23 12/21/2022 CBC W/DIF F basophils 0.5 % 0.0-2. 0 Not Available [facility] (Lab) [address] [facility], [place], [address], 12/22/2022 04:15:38 12/21/19 23 12/21/2022 CBC W/DIF F immature granulocytes 0.3 % no define d refere nce range Not Available [facility] (Lab) [address] [facility], [place], [address], 12/22/2022 04:15:38 12/21/19 23 12/21/2022 CBC W/DIF F absolute neutrophils 6.9 10'3/ uL 1.1-6. 0 high Not Available [facility] (Lab) [address] [facility], [place], [address], 12/22/2022 04:15:38 12/21/19 23 12/21/2022 CBC W/DIF F absolute lymphocytes 2.4 10'3/ uL 0.7-3. 4 Not Available [facility] (Lab) [address] [facility], [place], [address], 12/22/2022 04:15:38 12/21/19 23 12/21/2022 CBC W/DIF F absolute monocytes 0.9 10'3/ uL 0.3-1. 0 Not Available [facility] (Lab) [address] [facility], [place], [address], 12/22/2022 04:15:38 12/21/19 23 12/21/2022 CBC W/DIF F absolute eosinophils 0.2 10'3/ uL 0.0-0. 6 Not Available [facility] (Lab) [address] [facility], [place], [address], 12/22/2022 04:15:38 12/21/19 23 12/21/2022 CBC W/DIF F absolute basophils 0.1 10'3/ uL 0.0-0. 1 Not Available [facility] (Lab) [address] [facility], [place], [address], 12/22/2022 04:15:38 12/21/19 23 12/21/2022 CBC W/DIF F absolute immature granulocytes 0.0 10'3/ uL 0.00-0 .10 023 1:59 AM: P indic ates parti al resul ts on a panel have been relea sed. Addit ional resul ts will follo w. 023 2:00 AM: This resul t has been final verif ied. No addit ional or oliva ed resul ts are expec sigifredo. Not Available [facility] (Lab) [address] [facility], [place], [address], 12/22/2022 04:15:38 12/21/19 23 12/21/2022 URIC ACID uric acid 5.0 mg/dL 2.3-6. 6 Not Available [facility] (Lab) [address] [facility], [place], [address], 12/22/2022 04:15:38 12/21/19 23 12/21/2022 CMP(C OMPRE HENSI VE METAB OLIC PANEL ) sodium 135 mmol/ L 133-14 6 Not Available [facility] (Lab) [address] [facility], [place], [address], 12/22/2022 04:15:39 12/21/19 23 12/21/2022 CMP(C OMPRE HENSI VE METAB OLIC PANEL ) potassium 3.8 mmol/ L 3.5-5. 1 Not Available [facility] (Lab) [address] [facility], [place], [address], 12/22/2022 04:15:39 12/21/19 23 12/21/2022 CMP(C OMPRE HENSI VE METAB OLIC PANEL ) chloride 101 mmol/ L 98-107 Not Available [facility] (Lab) [address] [facility], [place], [address], 12/22/2022 04:15:39 12/21/19 23 12/21/2022 CMP(C OMPRE HENSI VE METAB OLIC PANEL ) carbon dioxide 26 mmol/ L 21-31 Not Available [facility] (Lab) [address] [facility], [place], [address], 12/22/2022 04:15:39 12/21/19 23 12/21/2022 CMP(C OMPRE HENSI VE METAB OLIC PANEL ) anion gap 8 mmol/ L 4-13 Not Available [facility] (Lab) [address] [facility], [place], [address], 12/22/2022 04:15:39 12/21/19 23 12/21/2022 CMP(C OMPRE HENSI VE METAB OLIC PANEL ) blood urea nitrogen 8 mg/dL 7-25 Not Available [facility] (Lab) [address], [place], [address], 12/22/2022 04:15:39 12/21/19 23 12/21/2022 CMP(C OMPRE HENSI VE METAB OLIC PANEL ) creatinine 0.58 mg/dL 0.60-1 .30 low Not Available [facility] (Lab) [address], [place], [address], 12/22/2022 04:15:39 12/21/19 23 12/21/2022 CMP(C OMPRE HENSI VE METAB OLIC PANEL ) egfrcr (CKD-epi 2020) >90 mL/mi n/1.7 3_m2 >=60 Not Available [facility] (Lab) [address], [place], [address], 12/22/2022 04:15:39 12/21/19 23 12/21/2022 CMP(C OMPRE HENSI VE METAB OLIC PANEL ) calcium 9.2 mg/dL 8.3-10 .5 Not Available [facility] (Lab) [address], [place], [address], 12/22/2022 04:15:39 12/21/19 23 12/21/2022 CMP(C OMPRE HENSI VE METAB OLIC PANEL ) glucose 87 mg/dL 70-100 Not Available [facility] (Lab) [address], [place], [address], 12/22/2022 04:15:39 12/21/19 23 12/21/2022 CMP(C OMPRE HENSI VE METAB OLIC PANEL ) protein, total 6.4 g/dL 6.4-8. 3 Not Available [facility] (Lab) [address], [place], [address], 12/22/2022 04:15:39 12/21/19 23 12/21/2022 CMP(C OMPRE HENSI VE METAB OLIC PANEL ) albumin 3.4 g/dL 3.5-5. 0 low Not Available [facility] (Lab) [address] [facility], [place], [address], 12/22/2022 04:15:39 12/21/19 23 12/21/2022 CMP(C OMPRE HENSI VE METAB OLIC PANEL ) ALT 19 units /L 9-43 Not Available [facility] (Lab) [address] [facility], [place], [address], 12/22/2022 04:15:39 12/21/19 23 12/21/2022 CMP(C OMPRE HENSI VE METAB OLIC PANEL ) alkaline phosphatase 155 units /L 34-104 high Not Available [facility] (Lab) [address] [facility], [place], [address], 12/22/2022 04:15:39 12/21/19 23 12/21/2022 CMP(C OMPRE HENSI VE METAB OLIC PANEL ) AST 20 units /L 13-39 Not Available [facility] (Lab) [address] [facility], [place], [address], 12/22/2022 04:15:39 12/21/19 23 12/21/2022 CMP(C OMPRE HENSI VE METAB OLIC PANEL ) bilirubin, total 0.3 mg/dL 0.2-1. 2 Not Available [facility] (Lab) [address] [facility], [place], [address], 12/22/2022 04:15:39 12/21/19 23 12/21/2022 PROTE IN/CR EATIN INE RATIO , URINE creatinine, urine 15.2 mg/dL R-No refer ence range estab lishe d for this assay Not Available [facility] (Lab) [address] [facility], [place], [address], 12/22/2022 04:15:39 12/21/19 23 12/21/2022 PROTE IN/CR EATIN INE RATIO , URINE protein, urine 5 mg/dL R-No refer ence range estab lishe d for this assay Not Available [facility] (Lab) [address] [facility], [place], [address], 12/22/2022 04:15:39 12/21/19 23 12/21/2022 PROTE IN/CR EATIN INE RATIO , URINE protein/crea tinine ratio, urine 0.33 . No Refer ence Range avail able for Rando m Urine s. A prote in to creat inine ratio of >=0.1 9 is a good predi ctor of signi fican t prote inuri a. A level of <0.14 can rule out signi fican t prote inuri a. Not Available [facility] (Lab) [address] [facility], [place], [address], 12/22/2022 04:15:39 12/21/1912/21/2022 CULTU RE: GROUP B STREP SCREE N, REFLE X SUSCE PTIBI LITY result report SEE RESULT S BELOW Test: Cultu re: Group B Strep , Refle x Susce ptibi lity ([facility]/K H/VW ) Speci men Sourc e: Vagin a/Rec chaparrita Speci men Type: Vagin al/Re ctal Speci men Date: 023 6:10 PM Resul t Date: 023 2:16 PM Resul t Statu s: Final resul t Abnor mal: No Resul ting Lab: [facility] [address] [facility] [address] Tel: CULTU RE ----- ----- ----- --- No Group B strep isola sigifredo at 2 days (renea ctive broth enhan cemen t) Not Available [facility] (Lab) [address] [facility], [place], [address], 12/24/2022 15:18:49 12/28/19 23 12/28/2022 PROTE IN, 24 HOUR URINE hours collected 24 h Not Available [facility] (Lab) [address] [facility], [place], [address], 12/29/2022 08:34:29 12/28/19 23 12/28/2022 PROTE IN, 24 HOUR URINE total volume 4700 mL Not Available [facility] (Lab) [address] [facility], [place], [address], 12/29/2022 08:34:29 12/28/19 23 12/28/2022 PROTE IN, 24 HOUR URINE protein, urine 8 mg/dL R-No refer ence range estab lishe d for this assay Not Available [facility] (Lab) [address] [facility], [place], [address], 12/29/2022 08:34:29 12/28/19 23 12/28/2022 PROTE IN, 24 HOUR URINE protein, 24H urine 376 mg/24 h 10-150 high Not Available [facility] (Lab) [address] [facility], [place], [address], 12/29/2022 08:34:29 12/21/19 23 12/21/2022 US, patricia tric follo w-up No observ ation record ed. [email or web address] [place] [address], [place], [address], 12/21/2022 18:26:41 12/21/19 23 12/21/2022 US, obste tric follo w-up No observ ation record ed. [facility] [id number], [facility], [place], [address], 07/05/2024 23:17:58 12/30/19 23 12/30/2022 non-s tress test No observ ation record ed. [email or web address] [place] [address], [place], [address], 12/30/2022 10:40:27 01/03/20 23 01/03/2023 non-s tress test No observ ation record ed. [email or web address] [place] [address], [place], [address], 01/03/2023 17:47:13 Result Notes None recorded. Problems Name Problem SNOMED Code Status Onset Date Resolution Date Notes Provider Name and Address Organization Details Recorded Time COVID-19 683037103 Completed 2021 ASA & serial growth Siomara case, [facility] 3 09:15:45 Proteinur ia [id number] Completed 24hr TP - 376 Siomara Curran [facility], [facility] 3 09:15:45 Problem Notes None recorded. Procedures Surgical History Date Name Laterality Status Provider Name and Address Organization Details Recorded Time 2 Date of Last Pap Smear completed Siomara Curran [facility] 12/30/2022 09:04:51 9 extraction of wisdom tooth completed Siomara Curran [facility] 06/10/2022 12:59:45 Imaging Results Imaging Date Name Status LastModified by Organiz ation Details LastModified Time 12/21/2022 US, obstetric, follow-up completed [email or web address] [place] [address], [place], [address], 12/21/2022 18:26:41 12/21/2022 US, obstetric, follow-up completed [facility] [id number], [place], [address], 07/05/2024 23:17:58 12/30/2022 non-stress test completed [email or web address] [place] [address], [place], [address], 12/30/2022 10:40:27 01/03/2023 non-stress test completed [email or web address] [place] [address], [place], [address], 01/03/2023 17:47:13 Procedure Notes None recorded. Medical Equipment None Reported. Allergies No known drug allergies Medications Name Sig Start Date Stop Date Status Note LastModified by Organization Details LastModified Time medroxyprog esterone 10 mg tablet 09/23 completed Not Available Not Available Not Available prednisone 10 mg tablet 09/23 completed Not Available Not Available Not Available cetirizine 10 mg tablet TAKE 1 TABLET BY MOUTH EVERY DAY NEEDED 06/10 completed Not Available Not Available Not Available fluconazole 150 mg tablet Take 1 tablet every day by oral route for 1 day. 06/10 completed Not Available Not Available Not Available valacyclovi r 1 gram tablet TAKE 2 TABLETS BY MOUTH EVERY DAY. active Not Available Not Available No t Available metronidazo le 500 mg tablet Take 1 tablet every 12 hours by oral route for 7 days. active Not Available Not Available No t Available famotidine 20 mg tablet 09/24 completed Not Available Not Available Not Available phenazopyri dine 100 mg tablet TAKE 2 TABLETS BY MOUTH THREE TIMES DAILY FOR 2 DAYS 09/23 completed Not Available Not Available Not Available cephalexin 500 mg capsule TAKE 1 CAPSULE BY MOUTH EVERY 6 HOURS FOR 10 DAYS active Not Available Not Available No t Available montelukast 10 mg tablet 09/24 completed Not Available Not Available Not Available ibuprofen 600 mg tablet TAKE 1 TABLET BY MOUTH EVERY 6 HOURS NEEDED FOR CRAMPING 02/01 completed Not Available Not Available Not Available estradiol 0.01% (0.1 mg/gram) vaginal cream apply externall y every night x 2 weeks active Not Available Not Available No t Available fluticasone propionate 50 mcg/actuati on nasal spray,suspe nsion SPRAY 2 SPRAYS INTO EACH NOSTRIL TWICE A DAY 06/10 completed Not Available Not Available Not Available amoxicillin 500 mg-potassiu m clavulanate 125 mg tablet 04/12 completed Not Available Not Available Not Available nitrofurant oin monohydrate /macrocryst als 100 mg capsule 02/01 completed Not Available Not Available Not Available Vitamin active Not Available Not Available Not Available Vitamin active Not Available Not Avail able Not Available Paxlovid 300 mg (150 mg x 2)-100 mg tablets in a dose pack active Not Available Not Available Not Available Vitals Date Recorded Body height Body mass index (BMI) Body weight Systolic blood pressure Diastolic blood pressure Provider Name and Address Organization Details Last Updated DateTime 12/30/2022 158.75 cm 30.4 kg/m2 89149.11 053 g 133 mm[Hg] 88 mm[Hg] Siomara Curran [facility] 3 09:35:21 Date Recorded Body height Body mass index (BMI) Body weight Systolic blood pressure Diastolic blood pressure Provider Name and Address Organization Details Last Updated DateTime 02/01/2023 158.75 cm 27 kg/m2 97538.85 55 g 120 mm[Hg] 76 mm[Hg] Siomara [facility] 3 09:35:02 Date Recorded Body height Body mass index (BMI) Body weight Systolic blood pressure Diastolic blood pressure Provider Name and Address Organization Details Last Updated DateTime 02/15/2023 158.75 cm 26.3 kg/m2 12054.49 g 122 mm[Hg] 81 mm[Hg] Siomara [facility] 3 09:30:39 Date Recorded Body height Body mass index (BMI) Body weight Systolic blood pressure Diastolic blood pressure Provider Name and Address Organization Details Last Updated DateTime 04/12/2023 158.75 cm 25.6 kg/m2 94535.12 g 120 mm[Hg] 83 mm[Hg] Siomara [facility] 3 14:25:28 Date Recorded Systolic blood pressure Diastolic blood pressure Provider Name and Address Organization Details Last Updated DateTime 01/03/2023 126 mm[Hg] 83 mm[Hg] Arlene Ness [facility] 01/03/2023 11:14:36 Social History Question Answer Notes LastModified by Organizat ion Details LastModified Time Tobacco Smoking Status Never Smoker [facility] 04/12/2023 13:53:07 Do You Have An Advance Directive? No Information n ot available 09/24/2021 What Is Your Level Of Alcohol Consumption? None [email or web address] Information not available 06/10/2022 If You Are , What Was Your Level Of Alcohol Consumption Prior To ? Occasional [email or web address] Information not available 04/12/2023 Are You Blind Or Do You Have Difficulty Seeing? No Information n ot available 09/24/2021 What Is Your Level Of Caffeine Consumption? Moderate Information not available 09/24/2021 How Much Tobacco Do You Chew? None Information not available 09/24/2021 In The 14 Days Before Symptom Onset, Have You Had Close Contact With A Laboratory-confirm ed COVID-19 While That Case Was Ill? No Information n ot available 09/24/2021 In The 14 Days Before Symptom Onset, Have You Had Close Contact With A Person Who Is Under Investigation For COVID-19 While That Person Was Ill? No Information not available 09/24/2021 Have You Been To An Area Known To Be High Risk For COVID-19? No Information not available 09/24/2021 Are You Deaf Or Do You Have Serious Difficulty Hearing? No Information not available 09/24/2021 What Type Of Diet Are You Following? REGULAR Information n ot available 09/24/2021 What Is The Highest Grade Or Level Of School You Have Completed Or The Highest Degree You Have Received? 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 No Information not available 09/24/2021 Do You Use Protection During Sex? No Information not available 09/24/2021 Do You Use Your Seat Belt Or Car Seat Routinely? Yes Information not available 09/24/2021 Do You Have Smoke And Carbon Monoxide Detectors In Your Home? Yes Information not available 09/24/2021 How Much Tobacco Do You Smoke? No Information not available 09/24/2021 Do You Feel Stressed (tense, Restless, Nervous, Or Anxious, Or Unable To Sleep At Night)? [id number] [email or web address] Information not available 12/21/2022 Do You Use Any Illicit Or Recreational Drugs? No Information not available 09/24/2021 Do You Use Sunscreen Routinely? Yes Information not available 09/24/2021 Has Tobacco Cessation Counseling Been Provided? No [email or web address] Information not available 04/12/2023 Have You Used IV Drugs? No Information not available 09/24/2021 Do You Or Have You Ever Used Any Other Forms Of Tobacco Or Nicotine? No [email or web address] Information not available 04/12/2023 Sex: Unknown Functional Status Question Answer Note LastModified by Organizat ion Details LastModified Time Do you have difficulty walking or climbing stairs? No [email or web address] Information not available 04/12/2023 Are you able to walk? [email or web address] Information not available 09/24/2021 Are you able to care for yourself? Yes [email or web address] Information not available 04/12/2023 Do you have difficulty dressing or bathing? No [email or web address] Information not available 04/12/2023 What is your exercise level? Heavy Information not available 09/24/2021 Mental Status None recorded. Family History Relationship Description Onset Age of this Age Resolved Age Notes LastModified by Organization Details LastModified Time Mother Depressive disorder Not available 2021 10:44:31 Father Carcinoma of prostate [email or web address] Not available 2022 13:53:06 Medical History Condition Response Allergies (Food, seasonal, environmental ) N Other N Blood Transfusion N Drug/Latex Allergies/Reactions N Breast Cancer N Dermatologic Disorders N Lung Disease N Defects or Inherited Disease N Breast Problem N Gestational Diabetes N Hematologic disorders N Anesthesia Complications N History of STI Y Deep Vein Thrombosis N Polycystic ovary syndrome N Anxiety Disorder Y Autoimmune disease N Arthritis N Infertility N Polyps N Acid Reflux (GERD) N History of abnormal pap N Cancer N Stroke N Varicosities N Neurologic/Epilepsy N Endometriosis N High Cholesterol N Headaches N Kidney Disease N Heart Problems N Kidney or Bladder Problems N Thyroid Problems N GI Problems N Eating Disorder N Anemia N Art (IVF or FET) N Psychiatric Illness N Ovarian Cancer N Diabetes N Pulmonary (TB, Asthma) N Hepatitis/Liver Disease N No Past Medical History N Eczema N Urinary Tract Infection Y Abuse/Domestic Violence N Asthma N Trauma/Violence N Depression/ depression N Heart Disease N Pre-Eclampsia N Hypertension N Osteoporosis N Thrombophilias N Gynecological History Statement/Question Response Abnormal Pap Y Flow Light Date of LMP 04/04/2022 On BCP's at Conception? N N Was last menstrual period normal Y STIs/STDs N HPV Vaccine Y Duration of Flow (days) 6 15 Current Control Method None Date of control 10/01/2020 Are cycles usually normal Y Sexually Active? Y Menses Monthly Y Age of first menstrual cycle 14 Date of Last Pap Smear 04/29/2022 Sexual Problems? N LMP Approximate N 10/04/2019 Obstetrics History GPAL:G 1 P 1 0 0 1 Type Value Full Term 1 Living 1 Total 1 Past Encounters Encounter ID Performer Location Encounter Start Date Encounter Closed Date Diagnosis/Indication Diagnosis SNOMED-CT Code Diagnosis ICD10 Code [id number] [address] [address] 09/24/2021 11:04:54 09/24/2021 12:33:03 Secondary amenorrhea 968130803 N91.1 Today we discussed starting this evaluation with updated lab work & US.Lack of cycle can increase risks for uterine cancers so evaluation also important for this reason.We will discuss results/US /Complete WWE at upcoming f/u visit.Plan to also discuss the possibilit y of Female athlete triad as a potential diff diagnosis as well since she is a VERY lean female who participat es in high intensity exercise most days of the week. Time spent in visit is a total of 32 mins with at least 50% of visit consisting of counseling and review of plan of care.Addit ional precaution anselmo measures were taken to minimize potential exposure to the Covid-19 virus during this patient? s visit, including available hand software systems architect upon arrive, temperatur e check and being asked a series of screening questions. All staff wore face coverings during this encounter, as well as provided additional cleaning and sanitizing of all surfaces, including countertop s, pens, chairs, door handles, light switches, etc, prior to and following the patient? s visit. [id number] Rosalba Kaur [place] [address],[place] [address] 09/27/2021 12:25:51 09/27/2021 14:09:03 [id number] GUY Carney-BC [place] [address],[place] [address] 10/07/2021 13:12:45 10/07/2021 14:43:05 Irregular periods [id number] N92.6 We reviewed her lab work retrieved from online chart.She had never had a previous hx of secondary amenorrhea prior to BCP use.We discussed that she is likely not ovulating regularly after stopping BCP's; but also likely from the high intensity activity (Cross fit 5d/wk, running etc) & her lean build these factors play a role in this issue. Her long-term goal is to achieve . We agreed to keep menstrual diary over the next 6mos.Will f/u at 6mos & we can see what her menstrual pattern is and then decide if any further interventi on is needed.Und erstands why we need monthly menses not only for but also to avoid risks of pre-cancer s/cancers moving forward.Di scussed cutting down on high intensity workouts and doing more of a better balance b/t high & lower intensity activities .Initiate [employer] naturals fish oilsEnsure consuming enough calories & protein along with good fats.Obtai n UPT's from [employer] & take on months she does not have a menses since they are not preventing . Understand ing verbalized & agreeable to plan. Time spent in visit is a total of 15 mins with at least 50% of visit consisting of counseling and review of plan of care. Additional precaution anselmo measures were taken to minimize potential exposure to the Covid-19 virus during this patient? s visit, including available hand software systems architect upon arrive, tempervanessa e check and being asked a series of screening questions. All staff wore face coverings during this encounter, as well as provided additional cleaning and sanitizing of all surfaces, including countertop s, pens, chairs, door handles, light switches, etc, prior to and following the patient? s visit. [id number] Angelica Tucker , [facility] [address],[place] [address] 04/08/2022 10:36:27 04/08/2022 13:46:41 Irregular periods [id number] N92.6 Z31.69 Today, we agreed to monitor her menses & ensure they continue to be monthly and wnl. We also counseled on pre-concep tion recommenda tions.Star t PNVMay take up to 12mos to become Di scussed ovulation mucous for signs of fertility/ ovulationD iscussed def of regular sex which is about q2-3 days a week to achieve . If not within a year can consider fertility consult with [place] Pichardo CNM.Needs to return for WWE with pap smear this summer 2021. Understand ing verbalized . Time spent in visit is a total of 30 mins with at least 50% of visit consisting of counseling and review of plan of care. [id number] GUY Carney[facility] [address],[place] [address] 04/29/2022 09:43:41 04/29/2022 10:47:19 Gynecologic examination [id number] Z01.419 Take Calcium with Vitamin D 1200mg daily if not receiving in daily diet. It is strongly advised to have an annual flu shot and up can obtain at most pharmacies . If you have not had a TDap shot in the last 10 years you should obtain one as well. Discussed with patient & provided with informatio n regarding Gardisil vaccine to prevent the 4 strains for HPV that cause cervical cancer if under age 26. Encourage safe sexual practices, to use condoms and limit partners if not already in a monogamous relationsh ip. Do monthly self breast exams. Have mammogram yearly or every other year depending on family history. BRCA testing is now available for patients with strong genetic history of female cancer. If interested contact the office. Engage in daily exercise of low impact aerobic exercise 45-60 minutes 4-5 times weekly. Avoid tobacco and illicit drugs as well as using moderation with alcohol intake less than 1-2 8 oz beverages daily. This lifestyle behavior pattern will lead to less health conditions and longer life span. If BMI greater than 25 weight watchers or dietary consult advised. Patient received above instructio ns, and questions have been answered. If you have any questions please call or respond to this email. Patient was made aware of the patient portal and may obtain a paper copy of today's plan if desired. Pap sent STD Screen sent Genetic Screen discussed Colon Screen na Dexa Screen na Routine Labs UTDmammo na [id number] Nandini Doll [place] [address],[place] [address] 06/10/2022 12:31:49 06/10/2022 12:52:56 screening [id number] Z36.9 Z3A.01 [id number] [facility] [address],[place] [address] 06/10/2022 12:32:17 06/10/2022 13:35:25 Amenorrhea [id number] N91.2 [id number] Nandini Doll [place] [address],[place] [address] 07/05/2022 10:25:00 07/05/2022 11:04:20 screening [id number] Z36.82 [id number] Hieu Ortiz MD [place] [address],[place] [address] 07/05/2022 10:25:29 07/05/2022 12:31:18 Gynecologic examination [id number] Z01.419 [id number] Hieu Ortiz MD [place] [address],[place] [address] 08/05/2022 12:42:33 08/08/2022 14:27:13 Routine care [id number] Z34.01 [id number] Rosalba Kaur [place] [address],[place] [address] 08/29/2022 15:22:36 08/29/2022 16:45:48 screening for malformation 613656899 Z36.3 [id number] Hieu Ortiz MD [place] [address],[place] [address] 08/29/2022 15:23:05 08/29/2022 17:32:16 Routine care 527876296 Z34.01 [id number] Nandini Doll [place] [address],[place] [address] 09/30/2022 13:53:32 09/30/2022 14:37:56 Pre-existing maternal disease complicating [id number] 6106 O99.891 O43.192 U07.1 Z86.16 Z3A.23 [id number] Deirdre Edwards MD [place] [address],[place] [address] 09/30/2022 13:54:15 10/01/2022 09:42:12 Routine care [id number] Z34.02 [id number] [facility] [address],[place] [address] 10/25/2022 11:59:55 10/25/2022 12:51:17 COVID-19 [id number] U07.1 O43.102 Z3A.27 [id number] Deirdre Edwards MD [place] [address],[place] [address] 10/25/2022 12:00:14 10/25/2022 13:21:03 Routine care [id number] Z34.02 [id number] Deirdre Edwards MD [place] [address],[place] [address] 11/11/2022 10:23:14 11/11/2022 11:00:51 Routine care [id number] Z34.02 [id number] Deirdre Edwards MD [place] [address],[place] [address] 11/25/2022 09:24:57 11/25/2022 14:31:20 Routine care 737175187 Z34.02 [id number] Nandini Doll [place] [address],[place] [address] 11/25/2022 09:25:14 11/25/2022 14:31:52 COVID-19 [id number] U07.1 O43.102 Z3A.31 [id number] [facility] [address],[place] [address] 12/07/2022 17:15:01 12/08/2022 14:37:27 Routine care [id number] Z34.93 [id number] [facility] [address],[place] [address] 12/21/2022 17:28:59 12/22/2022 12:07:54 COVID-19 [id number] U07.1 O43.103 Z3A.35 [id number] Caridad Pichardo [facility] [address],[place] [address] 12/21/2022 17:30:57 12/22/2022 12:10:07 Routine care [id number] Z34.93 [id number] Caridad Pichardo [facility] [address],[place] [address] 12/30/2022 09:24:48 12/30/2022 10:49:34 Routine care [id number] Z34.93 [id number] [facility] [address],[place] [address] 12/30/2022 10:05:45 12/30/2022 10:41:00 Gestational proteinuria 72156571 O12.13 [id number] Arlene Ness [place] [address],[place] [address] 01/03/2023 09:54:42 01/03/2023 11:08:19 Gestational proteinuria 52957560 O12.13 [id number] Siomara Curran [place] [address],[place] [address] 02/01/2023 09:27:32 02/01/2023 09:58:35 care 923281863 Z39.2 doing well Vaginitis 66771051 N76.0 f/u stitch check in 2 weeks [id number] Caridad Pichardo [facility] [address],[place] [address] 02/15/2023 09:17:39 02/15/2023 10:14:05 Vaginitis 02454665 N76.0 resolved, give 2 weeks for intercours e [id number] Caridad Pichardo [facility] [address],[place] [address] 04/12/2023 13:52:34 04/12/2023 14:58:31 Bacterial vaginosis 748769455 N76.0 Mastitis a ssociated with [id number] O91.23 if fullness does not resolve after antibiotic s plan breast US (R) state [id number] 1 Z39.2 Health Concerns Section Related Observation LastModified by Organization Detai ls LastModified Time None Recorded Concern Status LastModified by Organization Details LastModified Time None Recorded Advance Directives Directive N: Payers Encounter Date Sequence Insurance Name Policy Number Policy Viramontes Covered Member ID Viramontes Member ID Guarantor Name 12/30/2022 1 [place] [id number] Roaslio Diaz [id number] [facility] 01/03/2023 1 [place] [id number] Rosalio Diaz [id number] [facility] 02/01/2023 1 [place] [id number] Rosalio Diaz [id number] [facility] 02/15/2023 1 [place] [id number] Rosalio Diaz [id number] [facility] 04/12/2023 1 [place] [id number] Rosalio Diaz [id number] [facility] Notes Date Note Type Note Provider Name and Address Organization Details Recorded Time 02/01/2023 text/html VisitReported bypatient.Quality:NSV D Context:complications of : pre-eclampsia; complications of labor: pre-eclampsia; complications: none; feeding choice: breast; good support from partner/family; resumed menstrual bleeding no Associated Symptoms:no abnormal bleeding; no vaginal discharge; no constipation; no fecal incontinence; no dysuria; no urinary incontinence; no fever; normal mood;pelvic pain;laceration not well healed; burning occ bleeding from stitches Siomara case [facility] 02/01/2023 20:23:47 02/15/2023 text/html stitch check, tx with flagyl, feeling better and no complaints Caridad Pichardo CNM [address], [place], [address], [facility] 02/15/2023 09:40:49 04/12/2023 text/html f/u mastitishad c/o fever, redness, pain, started antibiotics and sxs are resolving, area was firm but is getting betterf/u ?odor maybe d/c, ?healing of lacerationno urinary sxsbreastfeeding Caridad Pichardo CNM [address], [place], [address], [facility] 04/12/2023 14:56:54 OBGyn Episode Ob Episode Information Episode Created Date Number of Fetuses Patient Bloodtype Patient rh Status Prepregnancy Weight lbs Domestic Partner Domestic Partner Phone Father Name Tax Compliance Manager Status 07/05/20 22 1 A Positive 130 CLOSED Fetus Data First Name Last Name Admitted to NICU Weight (g) Sex Living Outcome Pediatric Complications Fetus ID Race Codes Race Delivery Type Laura [id number] 54 F true Full Term [id number] Vaginal Delivery Problems Problem Notes accessory lobe of the placen ta - growth US q 4 weeks Problem Name Start Date End Date Resolution Snomed Code Not e Proteinuria [id number] 24hr TP - 376 COVID-19 09/21/2022 [id number] ASA & ser ial growth Adarsh Calculation Initial Adarsh Date Initial Exam Date Initial Exam Provider Initial Ultrasound Date Last Menstrual Period Date Ultra Sound Weeks Gestation 01/23/2023 07/05/2022 06/10/2022 04/03/2022 7 Eighteen To Twenty Week Adarsh Update Ultra Sound Date Fundal Height At Umbil Quickening Date Ultra Sound Latest Weeks Gestation Final Adarsh Confirmed By Final Adarsh Confirmed Date Final Adarsh Date Ultra Sound Latest Days Gestation 0 [email or web address] 07/05/2022 01/24/20 23 0 Pre-carla Flowsheet Flowsheet Date 07/05/2022 Kc Score Blood Edema Fundus Height Fundus Units Glucose Ketones Leukocytes Nitrite Labor Signs Protein Cervic Dilation Cervic Effacement Cervic Station 11 Type Weight in lbs Pre/Post Dialysis Refused Weight 135.53709871227 BP Diastolic BP Location Tested BP Systolic BP Type 76 L arm 121 sitting Fetus Heart Rate Present A 156 Fetus Movement Comments This patient is a 27-year-ol d 1 at 11 weeks gestation who presents for initial care. She has good dates based on a 7 week ultrasound. She has no complaints. We reviewed care in great detail. She is on vaccinated for COVID but she did have the disease. She was given other vaccine recommendations. To begin routine care. Flowsheet Date 08/05/2022 Kc Score Blood Edema Fundus Height Fundus Units Glucose Ketones Leukocytes Nitrite Labor Signs Protein Cervic Dilation Cervic Effacement Cervic Station 15 Type Weight in lbs Pre/Post Dialysis Refused Weight 141.190342446138 BP Diastolic BP Location Tested BP Systolic BP Type 73 R arm 117 sitting Fetus Heart Rate Present A 164 Fetus Movement Comments no complaints, no problems, Flowsheet Date 08/29/2022 Kc Score Blood Edema Fundus Height Fundus Units Glucose Ketones Leukocytes Nitrite Labor Signs Protein Cervic Dilation Cervic Effacement Cervic Station Type Weight in lbs Pre/Post Dialysis Refused BP Diastolic BP Location Tested BP Systolic BP Type Fetus Heart Rate Present Fetus Movement Comments Flowsheet Date 08/29/2022 Kc Score Blood Edema Fundus Height Fundus Units Glucose Ketones Leukocytes Nitrite Labor Signs Protein Cervic Dilation Cervic Effacement Cervic Station 19 Type Weight in lbs Pre/Post Dialysis Refused Weight 146.828394914110 BP Diastolic BP Location Tested BP Systolic BP Type 76 R arm 119 sitting Fetus Heart Rate Present A 156 Fetus Movement Comments No complaints, no problems, accessory lobe of placenta noted on ultrasound today, which to do serial growth ultrasound. Flowsheet Date 09/30/2022 Kc Score Blood Edema Fundus Height Fundus Units Glucose Ketones Leukocytes Nitrite Labor Signs Protein Cervic Dilation Cervic Effacement Cervic Station Type Weight in lbs Pre/Post Dialysis Refused BP Diastolic BP Location Tested BP Systolic BP Type Fetus Heart Rate Present Fetus Movement Comments Flowsheet Date 09/30/2022 Kc Score Blood Edema Fundus Height Fundus Units Glucose Ketones Leukocytes Nitrite Labor Signs Protein Cervic Dilation Cervic Effacement Cervic Station neg none 24 none trace Type Weight in lbs Pre/Post Dialysis Refused Weight 156.969491443632 BP Diastolic BP Location Tested BP Systolic BP Type 74 118 Fetus Heart Rate Present A 130 Fetus Movement A Yes Comments Doing well. Worried about he r weight. Up 26# total but 10# in last month. Discussed that that is a large jump on one month, but it may even out. Will monitor. GCT next. US today 75%. Will do flu and Tdap. Growth US to continue. Flowsheet Date 10/25/2022 Kc Score Blood Edema Fundus Height Fundus Units Glucose Ketones Leukocytes Nitrite Labor Signs Protein Cervic Dilation Cervic Effacement Cervic Station Type Weight in lbs Pre/Post Dialysis Refused BP Diastolic BP Location Tested BP Systolic BP Type Fetus Heart Rate Present Fetus Movement Comments Flowsheet Date 10/25/2022 Kc Score Blood Edema Fundus Height Fundus Units Glucose Ketones Leukocytes Nitrite Labor Signs Protein Cervic Dilation Cervic Effacement Cervic Station neg none 27 Type Weight in lbs Pre/Post Dialysis Refused Weight 158.327555159585 BP Diastolic BP Location Tested BP Systolic BP Type 80 131 Fetus Heart Rate Present A 130 Fetus Movement A Yes Comments Doing great. Still running, feels great. GCT today. FLu and Tdap done. US today 50%, LORENZA 23. Flowsheet Date 11/11/2022 Kc Score Blood Edema Fundus Height Fundus Units Glucose Ketones Leukocytes Nitrite Labor Signs Protein Cervic Dilation Cervic Effacement Cervic Station neg none 30 none trace Type Weight in lbs Pre/Post Dialysis Refused Weight 160.058800778187 BP Diastolic BP Location Tested BP Systolic BP Type 78 119 Fetus Heart Rate Present A 130 Fetus Movement A Yes Comments Doing well. A little more pa in with running now. Harshil horses, discussed comfort measures. Growth US next visit. No further UTI sx. GCT was 133, discussed carbs within reason. Flowsheet Date 11/25/2022 Kc Score Blood Edema Fundus Height Fundus Units Glucose Ketones Leukocytes Nitrite Labor Signs Protein Cervic Dilation Cervic Effacement Cervic Station Type Weight in lbs Pre/Post Dialysis Refused BP Diastolic BP Location Tested BP Systolic BP Type Fetus Heart Rate Present Fetus Movement Comments Flowsheet Date 11/25/2022 Kc Score Blood Edema Fundus Height Fundus Units Glucose Ketones Leukocytes Nitrite Labor Signs Protein Cervic Dilation Cervic Effacement Cervic Station neg none none trace Type Weight in lbs Pre/Post Dialysis Refused Weight 164.39714366435 BP Diastolic BP Location Tested BP Systolic BP Type 81 120 Fetus Heart Rate Present A 125 Fetus Movement A Yes Comments Doing well. US today 77%, AC 89%. No concerns. Flowsheet Date 12/07/2022 Kc Score Blood Edema Fundus Height Fundus Units Glucose Ketones Leukocytes Nitrite Labor Signs Protein Cervic Dilation Cervic Effacement Cervic Station Type Weight in lbs Pre/Post Dialysis Refused Weight 166.036708643640 BP Diastolic BP Location Tested BP Systolic BP Type 87 L arm 127 sitting Fetus Heart Rate Present Fetus Movement A Yes Comments has been doing natural classes, requesting bookkeeper assistant for delivery, discussed plan. has preadmission, plan growth in 2 weeks , precautions reviewed gbs at 36 weeks Flowsheet Date 12/21/2022 Kc Score Blood Edema Fundus Height Fundus Units Glucose Ketones Leukocytes Nitrite Labor Signs Protein Cervic Dilation Cervic Effacement Cervic Station Type Weight in lbs Pre/Post Dialysis Refused BP Diastolic BP Location Tested BP Systolic BP Type Fetus Heart Rate Present Fetus Movement Comments Flowsheet Date 12/21/2022 Kc Score Blood Edema Fundus Height Fundus Units Glucose Ketones Leukocytes Nitrite Labor Signs Protein Cervic Dilation Cervic Effacement Cervic Station neg none none trace Type Weight in lbs Pre/Post Dialysis Refused Weight 170.661039741896 BP Diastolic BP Location Tested BP Systolic BP Type 90 137 82 135 Fetus Heart Rate Present Fetus Movement A Yes Comments patient was in labor and del kinza of weekend with chest / under breast pain and all scans was normal. Patient is having some contractions and nausea. reviewed pain, check PIH labs EFW 45%, acc lobe noted, vertex, reviewed plan, labor precautions GBS done, pih labs, precautions reviewed Flowsheet Date 12/30/2022 Kc Score Blood Edema Fundus Height Fundus Units Glucose Ketones Leukocytes Nitrite Labor Signs Protein Cervic Dilation Cervic Effacement Cervic Station neg trace none trace 1cm 40% -2 Type Weight in lbs Pre/Post Dialysis Refused Weight 169.661108755433 BP Diastolic BP Location Tested BP Systolic BP Type 88 133 Fetus Heart Rate Present Fetus Movement A Yes Comments patient states that having c ontractions, cramping, discharge. reviewed pih labs, one slightly elevated bp at last visit. denies michel, visual changes, epigastric pain. discussed proteinuria without other sxs or bp, if any changes to bp or sxs will need to be reevaluated. discussed possible IOL if any changes, will start testing as a precaution. labor precautions reviewed Flowsheet Date 12/30/2022 Kc Score Blood Edema Fundus Height Fundus Units Glucose Ketones Leukocytes Nitrite Labor Signs Protein Cervic Dilation Cervic Effacement Cervic Station Type Weight in lbs Pre/Post Dialysis Refused BP Diastolic BP Location Tested BP Systolic BP Type Fetus Heart Rate Present Fetus Movement Comments Flowsheet Date 01/03/2023 Kc Score Blood Edema Fundus Height Fundus Units Glucose Ketones Leukocytes Nitrite Labor Signs Protein Cervic Dilation Cervic Effacement Cervic Station Type Weight in lbs Pre/Post Dialysis Refused BP Diastolic BP Location Tested BP Systolic BP Type 83 126 Fetus Heart Rate Present Fetus Movement Comments Pt here for NST only. BP WNL . Extra fatigue this weekend. No MICHEL. Some blurry vision. Mild hand swelling. NST reactive, but lots of uterine irritability/contractions? Reviewed with KP and with pts proteinuria, blurred vision, and uterine irritability to go to L&D for ext monitoring and PIH labs. Pt informed and verbalized understanding. ELGIN cárdenas Flowsheet Date 02/01/2023 Kc Score Blood Edema Fundus Height Fundus Units Glucose Ketones Leukocytes Nitrite Labor Signs Protein Cervic Dilation Cervic Effacement Cervic Station Type Weight in lbs Pre/Post Dialysis Refused Weight 150.663330141478 BP Diastolic BP Location Tested BP Systolic BP Type 76 120 Fetus Heart Rate Present Fetus Movement Comments Menstrual History Last Menstrual Date Menses Monthly On Bcp Conception Prior Menses Frequency Hcg Plus Date Menarche Onset Age 0504/03/2022 Genetic Screening And Infection History Question Response Note Mental Retardation/Autism false Patient's Age Will Be 35 Years Or Older At Estim ated Date of Delivery false Thalassemia (Prydeinig, Azerbaijani, Mediterranean, Or Background): MCV < 80 false Neural Tube Defect (Meningomyelocele, Spina Bifi da, Or Anencephaly) false Congenital Heart Defect false Down Syndrome false Faraz-Sachs (eg, Quaker, Cajun, Latvian-Racine) f alse Darrion Disease false Sickle Cell Disease Or Trait () false Hemophilia Or Other Blood Disorders false Muscular Dystrophy false Cystic Fibrosis false Oralia's Chorea false Intellectual Disability/Autism false If Yes, Was Person Tested For Fragile X? false Other Inherited Genetic Or Chromosomal Disorder false Maternal Metabolic Disorder (eg, Type 1 Diabetes , PKU) false Patient Or Baby's Father Had A Child With Defects Not Listed Above false Recurrent Loss, Or A Stillbirth false Medications (including Suppl ements, Vitamins, Herbs, OTC Drugs), Illicit/Recreational Drugs, Alcohol false If Yes, Agent(s) And Strength/Dosage false Any Other Genetic History false Live With Someone With TB Or Exposed To TB false Patient Or Partner Has History Of Genital Herpes false Rash Or Viral Illness Since Last Menstrual Perio d false History Of STD, Gonorrhea, Chlamydia, HPV, Syphi lis false Other Infection History false History of HIV false History of Hepatitis false Prior GBS-infected child false Hemoglobinopathy Or Carrier false Other Structural Defect false Recent Travel History Outside of Country false Delivery Information Delivery Date Delivery Type Labor Anesthesia Weeks Gestation Incision Type Labor Labor Length Hrs Delivered By Post Complications Tubal Sterilization Discharge Date Comments 3 Induce d Regional-Ep idural 37.2 false Caridad Pichardo CNM Pre eclampsia w/o severe features Discharge Information Feeding Method Contraceptive Method Maternal HG B and HCT Levels
[2024-12-19 12:32] LABS: Alanine Aminotransferase 56 U/L (6-35); Albumin Level 4.6 g/dL (3.5-5.1); Alkaline Phosphatase 74 U/L (38-126); Anion Gap 10 mmol/L (4-12); Aspartate Amino Transferase 54 U/L (14-36); Bilirubin,Total 0.6 mg/dL (0.2-1.3); Blood Urea Nitrogen 8 mg/dL (7-17); Carbon Dioxide 25 mmol/L (22-30); Chloride 101 mmol/L (98-107); Estimated Glomerular Filt Rate > 60; Glucose 101 mg/dL (65-110); Lipase 50 U/L (23-300); Potassium 4.1 mmol/L (3.4-5.0); Sodium 136 mmol/L (137-145)
[2024-12-19 12:58] LABS: Influenza A QL RT-PCR Negative (Negative); Influenza B QL RT-PCR Negative (Negative); RSV RNA, RT-PCR Negative (Negative); SARS-CoV-2 RNA PCR Positive (Negative)
[2024-12-19 13:18] LABS: Basophils Percent Auto 0.3 % (0.2-1.2); Eosinophils Absolute Auto 0.1 K/mm3 (0-0.3); Hematocrit 43.2 % (37.0-47.0); Hemoglobin 14.6 g/dL (12.0-15.0); Immature Granulocyte Absolute 0.02 K/mm3 (0.00-0.031); Immature Granulocyte Percent A 0.3 % (0-0.5); Lymphocytes Absolute Auto 2.49 K/mm3 (0.9-3.2); Lymphocytes Percent Auto 41.2 % (18.3-44.2); Mean Corpuscular HGB Conc 33.8 g/dl (32-36); Mean Corpuscular Hemoglobin 29.4 pg (26-34); Mean Corpuscular Volume 86.9 fl (80-100); Mean Platelet Volume 9.9 fl (7.4-10.4); Monocytes Absolute Auto 0.3 K/mm3 (0.1-0.6); Monocytes Percent Auto 5.3 % (2.6-8.5); Neutrophils Absolute Auto 3.1 K/mm3 (1.3-6.7); Neutrophils Percent Auto 50.9 % (45.5-73.1); Platelet Count Result 235 k/mm3 (150-375); Red Blood Count 4.97 M/mm3 (4.2-5.4); Red Cell Distribution Width 12.5 % (11.5-14.5)
[2024-12-19 13:42] LABS: BEDSIDEPREGUCG Negative (Negative)
[2024-12-19 14:05] LABS: Add Urine Microscopic? YES; Appearance Urine Clear (Clear); Bacteria Urine None Seen /hpf; Bilirubin Urine Negative (Negative); Blood Urine Negative (Negative); Color Urine Yellow (Yellow); Glucose Urine UA Negative (Negative); Ketones Urine Negative (Negative); Leukocyte Esterase Ur Trace LEU/UL (Negative); Nitrate Urine Negative (Negative); Non Pathogenic Casts 0-2; Protein Urine Negative (Negative); RBC Urine 0-2 /hpf (0-2); Specific Grav Ur 1.003 (1.001-1.035); Squamous Epithelial Cell Urine None Seen /hpf (Few); Urobilinogen Urine 0.2 mg/dL (<2.0); WBC Urine 0-5 /hpf (0-3)
--- OUTSIDE RECORDS SUMMARY | 2024-12-19 15:04 | XMS_ITS ---
Author Organization [facility] Address [address] [place] [address] Care Team Providers Care Employment Specialist Name Role Phone Stephani Willis Primary Care Provider Neel Lloyd Unavailable [phone] Lauren Gonzalez Unavailable [phone] REASON FOR VISIT Skin testing Encounters Encounter Location Date Provider Diagnosis [facility] [address] [place] [address] 04/25/2024 Lauren Gonzalez Plan Of Treatment No Information Progress Notes * Jennie DIAZDOB: [birth year] (29 yo F)Acc No.[id number]:04/25/2024 Skin Testing Patient:?Jennie DIAZ Provider:?NUNU Scales :1995???Age:29 Y???Sex:Female D ate:04/25/2024 Address[place] [id number] Pcp:Stephani Willis Subjective: * Chief Complaints: * ???1. Skin testing. * Medical History:? Objective: * Vitals:? Assessment: Plan: * Treatment: * Billing Information: * Visit Code:? * Procedure Codes:? * Electronic signature of NUNU Camargo on 12/19/2024 at 03:04 PM TOP TRIMMER Sign off status: Pending * Provider:?REBEKAH Scales-DARLEEN Jd e:?04/25/2024 Generated for Kasandra modi/Zhou/Miguel on:?12/19/2024 03:04 PM TOP TRIMMER
--- OUTSIDE RECORDS SUMMARY | 2024-12-19 15:04 | XMS_ITS | Clinical Summary ---
Author Organization [facility] Address [address] [place] [address] Care Team Providers Care Director Of Leadership Development Name Role Phone Stephani Willis MD Primary Care Provider [phone] Source Comments [facility],non-owned Affiliates and Associated Physician Practices is amultiple site organization consisting of ambulatory clinics and hospital sitesin [place], [place], [place] and [place]. This disclosure is being madepursuant to the Care Everywhere program and may not contain all information available regarding this patient. Last updated 18.[facility] Allergies No known active allergies Immunizations Name Administration Dates Next Due INFLUENZA VACCINE, QUADR. (F LUZONE; FLULAVAL; FLUARIX; AFLURIA QUADRIVALENT; 6MO+), 0.5 ML (IIV4) 10/19/2018,09/30/2017 Social History Tobacco Use Types Packs/Day Years Used Date Smoking Tobacco: Never Assessed Sex and Gender Information Value Date Recorded Sex Assigned at Not on file Gender Identity Not on file Sexual Orientation Not on file Last Filed Vital Signs Vital Sign Reading Time Taken Comments Blood Pressure - - Pulse - - Temperature - - Respiratory Rate - - Oxygen Saturation - - Inhaled Oxygen Concentration - - Weight 55.3 kg (122 lb) 07/13/2015 3:00 PM CDT Height 165.1 cm (5' 5 ) 07/13/2015 3:00 PM CDT Body Mass Index 20.3 07/13/2015 3:00 PM CDT Plan of Treatment Health Maintenance Due Date Last Done Comments PAP SMEAR 1995 HIV SCREENING 2009 HEPATITIS C SCREENING 01/20/2012 DTAP/TDAP/TD VACCINES (1 - Tdap) 2013 HEPATITIS B VACCINE (1 of 3 - 19+ 3-dose series) 2013 COVID-19 VACCINE (1 - 2023-2 5 season) 2024 INFLUENZA VACCINE (#1) 2024 8, 09/30/2017 DEPRESSION SCREENING 11/20/2024 ZOSTER VACCINE (1 of 2) 01/25/2044 HIB VACCINE Aged Out No longer eligi ble based on patient's age to complete this topic HPV VACCINE Aged Out No longer eligi ble based on patient's age to complete this topic MENINGOCOCCAL (Group B) VACCINE Aged Out No longer eligible b ased on patient's age to complete this topic MENINGOCOCCAL VACCINE Aged Out No emir sravani eligible based on patient's age to complete this topic PNEUMOCOCCAL VACCINE Aged Out No long er eligible based on patient's age to complete this topic Care Teams Director Of Leadership Development Relationship Specialty Start Date End Date Stephani Willis MD [address] [place] [address] PCP - General Family Medicine 09/30/17
--- OUTSIDE RECORDS SUMMARY | 2024-12-19 15:04 | XMS_ITS | Encounter Summary ---
Author Organization [facility] Address [address] [place] [address] Care Team Providers Care Turf Sales Person Name Role Phone Stephani Willis MD Primary Care Provider [phone] Stephani Willis MD Unavailable [phone] Reason for Visit * Reason Comments Back Pain Lower back pain, bod y aches and abdominal pressure. [facility] and tested for UTI and it came back negative and culture is still pending on 12/16/24.Chills started yesterday Reports she had runny nose this week. Encounter Details Date Type Department Care Team (Late st Contact Info) Description 12/19/2024 10:15 AM REFRIGERATION OPERATOR Office Visit [facility] Medical [facility] Convenient Care at [address] [address] Rosalba Arevalo PA [address] [place] [address] [address] [place] [address] Abdominal pain (Primary Dx) Social History Tobacco Use Types Packs/Day Years Used Date Smoking Tobacco: Never Smokeless Tobacco: Never Alcohol Use Standard Drinks/Week Comments Yes 0 (1 standard drink = 0.6 oz pur e alcohol) Rare Comments Unknown Sex and Gender Information Value Date Recorded Sex Assigned at Not on file Legal Sex Female 12:21 AM REFRIGERATION OPERATOR Gender Identity Female 09/29/2020 8:59 AM REFRIGERATION OPERATOR Sexual Orientation Straight 08/18/2020 11 :26 AM CDT documented as of this encounter Last Filed Vital Signs Vital Sign Reading Time Taken Comments Blood Pressure 122/80 12/19/2024 10:17 AM REFRIGERATION OPERATOR Pulse 87 12/19/2024 10:17 AM REFRIGERATION OPERATOR Temperature 37.1 ??C (98.8 ??F) 12/19/2024 10:[address] Respiratory Rate 20 12/19/2024 10:17 AM REFRIGERATION OPERATOR Oxygen Saturation 98% 12/19/2024 10:17 AM REFRIGERATION OPERATOR Inhaled Oxygen Concentration - - Weight 59.4 kg (131 lb) 12/19/2024 10:17 AM REFRIGERATION OPERATOR Height - - Body Mass Index 23.21 06/09/2024 5:42 PM CDT documented in this encounter Progress Notes * Rosalba Arevalo PA - 12/19/2024 10:15 AM CST Images from the original note were not included. Subjective/Objective Patient ID: Jennie Diaz is a 29 y.o. female. Chief Complaint Back Pain (Lower back pain, body aches and abdominal pressure. Went to [facility] and tested for UTI and it came back negative and culture is still pending on 12/16/24./Chills started yesterday /Reports she had runny nose this week. ) Pt presents w/ flu symptoms x 3 days. Also c/o chills, low grade fevers (99-100), BA, nasal congestion, rhinorrhea, cough, dec appetite, abdominal pressure and bloating, low back pain, nausea, vomiting x 1, urinary urgency. No sore throat, diarrhea, dysuria. Seen at [facility], neg for UTI, culture still pending. Taking ibuprofen w/ moderate improvement. No sick contacts. Review of Systems All systems reviewed and are negative or non contributory for this patient's presentation today other than as stated in the HPI . Physical Exam Constitutional: General: She is not in acute distress. Appearance: She is not ill-appearing or toxic-appearing. HENT: Head: Normocephalic and atraumatic. Right Ear: External ear normal. Left Ear: External ear normal. Nose: Nose normal. Mouth/Throat: Mouth: Mucous membranes are moist. Pharynx: Oropharynx is clear. Eyes: Conjunctiva/sclera: Conjunctivae normal. Pupils: Pupils are equal, round, and reactive to light. Cardiovascular: Rate and Rhythm: Normal rate and regular rhythm. Heart sounds: Normal heart sounds. Pulmonary: Effort: Pulmonary effort is normal. Breath sounds: Normal breath sounds. Abdominal: General: There is no distension. Palpations: Abdomen is soft. Tenderness: There is abdominal tenderness (moderate ttp RLQ, mild generalized tenderness). There isno right CVA tenderness or left CVA tenderness. Musculoskeletal: General: Normal range of motion. Cervical back: Normal range of motion. Skin: General: Skin is warm and dry. Neurological: General: No focal deficit present. Mental Status: She is alert and oriented to person, place, and time. Psychiatric: Mood and Affect: Mood normal. Behavior: Behavior normal. Vitals: 12/19/24 1017 BP: 122/80 Pulse: 87 Resp: 20 Temp: 37.1 ??C (98.8 ??F) SpO2: 98% Weight: 59.4 kg (131 lb) Assessment/Plan -pt w/ abd pain and bloating, low back pain x 3 days w/ associated flu like symptoms including chills and low grade fevers -seen at [facility] and was neg for UTI, urine dip again today w/ trace blood only -has some mild URI symptoms but covid/flu tests negative -more concerned with the abdominal pain as she was suprisingly tender on exam, most notably so in the RLQ. More suspicious in the setting of low grade fever, chills, nausea, and vomiting -patient was referred to the ED for further evaluation and to r/o intraabdominal pathology including appendicitis, ruptured ovarian cyst, colitis, etc. Diagnoses and all orders for this visit: Abdominal pain (Primary) - POC Influenza A/B, COVID-19 antigen - POCT urinalysis dipstick - Influenza A/B, RSV, and COVID-19 PCR Nasopharyngeal; Future Recent Results (from the past 4 hours) POC Influenza A/B, COVID-19 antigen Collection Time: 12/19/24 10:39 AM Result Value Ref Range Influenza A Ag, POC Negative Negative Influenza B Ag, POC Negative Negative COVID-19 Ag POC Presumptive Negative Presumptive Negative, Invalid POCT urinalysis dipstick Collection Time: 12/19/24 11:00 AM Result Value Ref Range Color, Urine, POC Yellow Clarity, ur, POC Clear Clear Glucose, ur, POC Negative Negative MG/DL Bilirubin, ur, POC Negative Negative, Small, Moderate, Large Ketones, ur, POC Negative Negative Specific [place], POC 1.005 1.003 - 1.030 Blood, ur, POC Hemolyzed, trace (A) Negative pH, ur, POC 6.0 5.0 - 8.0 Protein, ur, POC Negative Negative Urobilinogen, urine, POC 0.2 0.2 - 1.0 mg/dL Nitrite, ur, POC Negative Negative Leukocytes, ur, POC Negative Negative Lot Number [id number] Disposition Treatment plan including expectations, follow up, and return precautions discussed with patient/parent, verbalizes understanding. Medication dosage, use, and potential adverse reactions discussed with patient/parent. Advised to follow up with PCP if symptoms do not resolve as expected or sooner if condition worsens. Signs/symptoms warranting ER evaluation reviewed. Patient and/or guardian was given an opportunity to ask questions, questions answered. EMMANUEL Madrigal 12/19/24 11:07 AM Cosigned by Munir Arias MD at 12/19/2024 12:11 PM REFRIGERATION OPERATOR IGERATION OPERATOR IGERATION OPERATOR documented in this encounter Plan of Treatment Scheduled Orders Name Type Priority Associated Diagnoses Orde r Schedule Influenza A/B, RSV, and COVID-19 PCR Nasopharyngeal Microbiology Routine Abdominal pain Expected: 12/19/2024, Expires: 12/19/2025 documented as of this encounter Procedures Procedure Name Priority Date/Time Associated Diagnosis Comments POCT URINALYSIS DIPSTICK Routine 12/19/2024 11:00 AM REFRIGERATION OPERATOR Abdominal pain POC INFLUENZA A/B, COVID-19 ANTIGEN Routine 12/19/2024 10:39 AM REFRIGERATION OPERATOR Abdominal pain documented in this encounter Results * (ABNORMAL) POCT urinalysis dipstick (12/19/2024 11:00 AM REFRIGERATION OPERATOR) Color, Urine, POC Yellow Clarity, ur, POC Clear Clear Glucose, ur, POC Negative Negative MG/DL Bilirubin, ur, POC Negative Negative, Small, Moderate, Large Ketones, ur, POC Negative Negative Specific [place], POC 1.005 1.003 - 1.030 Blood, ur, POC Hemolyzed, trace(A) Negative pH, ur, POC 6.0 5.0 - 8.0 Protein, ur, POC Negative Negative Urobilinogen, urine, POC 0.2 0.2 - 1.0 mg/dL Nitrite, ur, POC Negative Negative Leukocytes, ur, POC Negative Negative Lot Number [id number] Urine 12/19/2024 11:0 0 AM REFRIGERATION OPERATOR Rosalba BENITEZ POINT OF CARE TEST ORDER LATRICIA Final Result * POC Influenza A/B, COVID-19 antigen (12/19/2024 10:39 AM REFRIGERATION OPERATOR) Influenza A Ag, POC Negative Negative [facility] Influenza B Ag, POC Negative Negative [facility] COVID-19 Ag POC Presumptive Negative Presumptive Negative, Invalid [facility] Nasal 12/19/2024 10:3 9 AM REFRIGERATION OPERATOR Rosalba BENITEZ POINT OF CARE TEST ORDER LATRICIA Final Result Performing Organization Address City/State/[facility] Co de Phone Number [facility] [address] [place] [address] documented in this encounter Visit Diagnoses Diagnosis Abdominal pain- Primary Abdominal pain, unspecified site documented in this encounter Additional Health Concerns Infection Onset Date Last Indicated Resolved Time COVID: Suspected 12/19/2024 12/19/2024 12/19/2024 10:40 AM REFRIGERATION OPERATOR documented as of this encounter Care Teams Turf Sales Person Relationship Specialty Start Date End Date Stephani Willis MD PCP - General Family Medicine 12/16/19 Stephani Willis MD Family Medicine 12/16/19 documented as of this encounter
--- OUTSIDE RECORDS SUMMARY | 2024-12-19 15:04 | XMS_ITS | Referral Summary ---
Author Organization [facility] Address [address] [place] [address] Care Team Providers Care Forest Practices Field Coordinator Name Role Phone Stephani Willis MD Primary Care Provider [phone] Stephani Willis MD Unavailable [phone] Encounters Date Type Department Care Team Description 12/19/2024 10:15 AM GENERAL TECHNICIAN Office Visit [facility] Medical Group Convenient Care at [address] [address] Rosalba Arevalo PA Abdominal pain (Primary Dx) from Last 3 Months Allergies No known active allergies Medications cetirizine (ZyrTEC) 10 mg tablet Take 10 mg by mouth daily 1 9 Active medroxyPROGESTE Gurpreet (PROVERA) 10 mg tablet Take 1 tablet (10 mg total) by mouth daily for 10 days 10 tablet 1 Active estradioL (ESTRACE) 0.01 % (0.1 mg/gram) vaginal cream apply externally every night x 2 weeks Active metroNIDAZOLE (FLAGYL) 500 mg tablet Take 1 tablet every 12 hours by oral route for 7 days. Active valACYclovir (VALTREX) 500 mg tablet Take 1 tablet (500 mg total) by mouth 2 (two) times a day 4 Active benzonatate (TESSALON) 200 mg capsuleIndicati ons:Acute cough Take 1 capsule (200 mg total) by mouth 3 (three) times a day as needed for cough keep tessalon out of reach of children, especially children under the age of 10, due to possible serious risk such as if ingested by children under the age of 10. 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 Social History Tobacco Use Types Packs/Day Years Used Date Smoking Tobacco: Never Smokeless Tobacco: Never Tobacco Cessation:Counseling Given: Not Answered Alcohol Use Standard Drinks/Week Comments Yes 0 (1 standard drink = 0.6 oz pur e alcohol) Rare Comments Unknown Sex and Gender Information Value Date Recorded Sex Assigned at Not on file Legal Sex Female 12:21 AM GENERAL TECHNICIAN Gender Identity Female 09/29/2020 8:59 AM GENERAL TECHNICIAN Sexual Orientation Straight 08/18/2020 11 :26 AM CDT Last Filed Vital Signs Vital Sign Reading Time Taken Comments Blood Pressure 122/80 12/19/2024 10:17 AM GENERAL TECHNICIAN Pulse 87 12/19/2024 10:17 AM GENERAL TECHNICIAN Temperature 37.1 ??C (98.8 ??F) 12/19/2024 10:[address] Respiratory Rate 20 12/19/2024 10:17 AM GENERAL TECHNICIAN Oxygen Saturation 98% 12/19/2024 10:17 AM GENERAL TECHNICIAN Inhaled Oxygen Concentration - - Weight 59.4 kg (131 lb) 12/19/2024 10:17 AM GENERAL TECHNICIAN Height 160 cm (5' 3 ) 06/09/2024 5:42 PM CDT Body Mass Index 23.21 06/09/2024 5:42 PM CDT Plan of Treatment Not on file Procedures Procedure Name Priority Date/Time Associated Diagnosis Comments POCT URINALYSIS DIPSTICK Routine 12/19/2024 11:00 AM GENERAL TECHNICIAN Abdominal pain POC INFLUENZA A/B, COVID-19 ANTIGEN Routine 12/19/2024 10:39 AM GENERAL TECHNICIAN Abdominal pain THINPREP PAP WITH HPV Routine 09/09/2019 9:57 AM CDT Encounter for well woman exam with routine gynecological exam from Last 3 Months or Most Recently Relevant to Health Maintenance Results * (ABNORMAL) POCT urinalysis dipstick (12/19/2024 11:00 AM GENERAL TECHNICIAN) Color, Urine, POC Yellow Clarity, ur, POC Clear Clear Glucose, ur, POC Negative Negative MG/DL Bilirubin, ur, POC Negative Negative, Small, Moderate, Large Ketones, ur, POC Negative Negative Specific [place], POC 1.005 1.003 - 1.030 Blood, ur, POC Hemolyzed, trace(A) Negative pH, ur, POC 6.0 5.0 - 8.0 Protein, ur, POC Negative Negative Urobilinogen, urine, POC 0.2 0.2 - 1.0 mg/dL Nitrite, ur, POC Negative Negative Leukocytes, ur, POC Negative Negative Lot Number [id number] Urine 12/19/2024 11:0 0 AM GENERAL TECHNICIAN Rosalba BENITEZ POINT OF CARE TEST ORDER LATRICIA Final Result * POC Influenza A/B, COVID-19 antigen (12/19/2024 10:39 AM GENERAL TECHNICIAN) Influenza A Ag, POC Negative Negative [facility] Influenza B Ag, POC Negative Negative [facility] COVID-19 Ag POC Presumptive Negative Presumptive Negative, Invalid [facility] Nasal 12/19/2024 10:3 9 AM GENERAL TECHNICIAN Rosalba BENITEZ POINT OF CARE TEST ORDER LATRICIA Final Result [facility] [address] [place] [address] * ThinPrep Pap with HPV (09/09/2019 9:57 AM CDT) 09/09/2019 9:57 AM CDT 09/10/2019 7:26 PM CDT Narrative [facility] - 09/12/2019 4:19 PM CDT [facility] of Pathology [address] [place] [id number] Final Report with Addendum Patient Name: ??KEL LEE Address: ??[facility] [address], ?? [place], [place] [address] Gender: ??F : ??1995 (Age: 24) Service: ??Laboratory Location: ??Lab Hospital #: ??[id number] Patient Type: ??CH Ref Lab Taken: ??09/09/2019 Received: ??09/10/2019 Accessioned:: ??09/10/2019 Reported: ??09/12/2019 Physician(s): Nicole Ramos M.D. [facility] Diagnosis: Source of Specimen: ? SCREENING IMAGED PAP w/ HPV Specimen Adequacy: ?- Satisfactory for evaluation; endocervical/transformation zone component present General Category: ?- Negative for intraepithelial lesion or malignancy ?? CB Mae(ASCP) CB Bettencourt(ASCP) Report Electronically Reviewed and Signed Out By ??CB Bettencourt(ASCP) ??09/12/2019 16:19:56 Addenda: HPV RNA Test Interpretation NEGATIVE for types 16, 18, 31, 33, 35, 39, 45, 51, 52, 56, 58, 59, 66 and 68. Test performed utilizing Gen-Probe Aptima assay. ?? CB Bettencourt(ASCP) ??Report Electronically Reviewed and Signed Out By ??CB Bettencourt(ASCP) ??09/11/2019 12:33:18 ? Specimen(s) Received: A: SCREENING IMAGED PAP w/ HPV Clinical History: Last Menstrual Period: 08/28/19 Menstrual History: Previous Abnormal Pap The Pap test is a screening test used to aid in the detection of cervical cancer and its precursors. ??It should not be the sole means by which malignant and premalignant lesions are diagnosed. ??Both false negative and false positive results may occur. ?? It also has poor sensitivity for the detection of endometrial lesions and should not be used to evaluate suspected endometrial abnormalities. ??For these reasons it is most important to obtain Pap tests at regular intervals. The performance characteristics of some immunohistochemical stains, fluorescence in-situ hybridization tests and immunophenotyping by flow cytometry cited in this report (if any) were determined by the Surgical Pathology Department at [facility] as part of an ongoing quality review trainer program and in compliance with federally mandated regulations drawn from the Clinical Laboratory Improvement Act of 1988 (CLIA '88). ??Some of these tests rely on the use of analyte specific reagents and are subject to specific labeling requirements by the US Food and Drug Administration. ??Such diagnostic tests may only be performed in a facility that is certified by the Department of Health and Human Services as a high complexity laboratory under CLIA '88. The FDA has determined that such clearance or approval is not necessary. ??This test is used for clinical purposes. ??It should not be regarded as investigational or for research. ??Nevertheless, federal rules concerning the medical use of analyte specific reagents require that the following disclaimer be attached to the report: This test was developed and its performance characteristics determined by the Surgical Pathology Department [facility]. ??It has not been cleared or approved by the U. S. Food and Drug Administration. Nicole Ramos MD LAB CYTOLOGY ORDERABLE S Final Result Performing Organization Address City/State/[facility] de Phone Number [address] [phone] from Last 3 Months or Most Recently Relevant to Health Maintenance Additional Health Concerns Infection Onset Date Last Indicated COVID: Suspected 12/19/2024 12/19/2024 Insurance [employer] [facility] BLUE ACCESS OOS [employer] OOS BLUE ACCESS OOS Care Teams Forest Practices Field Coordinator Relationship Specialty Start Date End Date Stephani Willis MD PCP - General Family Medicine 12/16/19 Stephani Willis MD Family Medicine 12/16/19
--- OUTSIDE RECORDS SUMMARY | 2024-12-19 15:04 | XMS_ITS | Referral Summary ---
Author Organization [email or web address] Address [address] [place] [address] Care Team Providers Care Rivet Spinner Name Role Phone Stephani Willis MD Primary Care Provider [phone] Source Comments [facility],non-owned Affiliates and Associated Physician Practices is amultiple site organization consisting of ambulatory clinics and hospital sitesin [place], [place] and [place]. This disclosure is being madepursuant to the Care Everywhere program and may not contain all information available regarding this patient. Last updated 18.[email or web address] Allergies No known active allergies Immunizations Name [...] 07/13/2015 3:00 PM CDT Plan of Treatment Not on file Care Teams Rivet Spinner Relationship Specialty Start Date End Date Stephani Willis MD [address] [place] [address] PCP - General Family Medicine 09/30/17
--- OUTSIDE RECORDS SUMMARY | 2024-12-19 15:04 | XMS_ITS | Clinical Summary ---
Author Organization [facility] Address [address] [place] [id number] Care Team Providers Care Warehouse Pricing And Inventory Clerk Name Role Phone Stephani Willis MD Primary Care Provider [phone] Stephani Willis MD Unavailable [phone] Allergies No known active allergies Medications cetirizine [...] under the age of 10. 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 Anxiety Family History Medical History Relation Name Comments Hyperlipidemia Father Hyperlipidemia Mother Mental illness Mother Breast cancer Neg Hx Relation Name Status Comments Father Alive Mother Alive Social History Tobacco Use Types Packs/Day Years Used Date Smoking Tobacco: Never Smokeless Tobacco: Never Tobacco Cessation:Counseling Given: Not Answered Alcohol Use Standard Drinks/Week Comments Yes 0 (1 standard drink = 0.6 oz pur e alcohol) Rare Comments Unknown Sex and Gender Information Value Date Recorded Sex Assigned at Not on file Legal Sex Female 12:21 AM [employer] Gender Identity Female 09/29/2020 8:59 AM [employer] Sexual Orientation Straight 08/18/2020 11 :26 AM CDT Obstetrics History Para Term AB IAB SAB Ectopic Multiple Livin g Live Births 0 0 0 0 0 0 0 0 0 0 0 Last Filed Vital Signs Vital Sign Reading Time Taken Comments Blood Pressure 122/80 12/19/2024 10:17 AM [employer] Pulse 87 12/19/2024 10:17 AM [employer] Temperature 37.1 ??C (98.8 ??F) 12/19/2024 10:[address] Respiratory Rate 20 12/19/2024 10:17 AM [employer] Oxygen Saturation 98% 12/19/2024 10:17 AM [employer] Inhaled Oxygen Concentration - - Weight 59.4 kg (131 lb) 12/19/2024 10:17 AM [employer] Height 160 cm (5' 3 ) 06/09/2024 5:42 PM CDT Body Mass Index 23.21 06/09/2024 5:42 PM CDT Plan of Treatment Health Maintenance Due Date Last Done Comments Depression Screening 1995 Hepatitis C Screening 1995 Varicella Vaccines (1 of 2 - 13+ 2-dose series) 2007 DTaP/Tdap/Td Vaccine (7 - Td or Tdap) 06/05/2018 06/05/2008, 06/04/1999, 05/11/1995, Additional history exists Cervical Cancer Screening 09/09/2020 09/09/2019, Regular Well Visit/Exam 18-64 10/02/2021 10/02/2020, 09/09/2019 Influenza Vaccine (#1) 2024 10/19/2018, 2016 HPV Vaccines Completed 09/19/2011, 04/21, 03/10/2011 Pneumococcal vaccine <65 Aged Out No longer eligible based on patient's age to complete this topic Procedures Procedure Name Priority Date/Time Associated Diagnosis Comments POCT URINALYSIS DIPSTICK Routine 12/19/2024 11:00 AM [employer] Abdominal pain POC INFLUENZA A/B, COVID-19 ANTIGEN Routine 12/19/2024 10:39 AM [employer] Abdominal pain THINPREP PAP WITH HPV Routine 09/09/2019 9:57 AM CDT Encounter for well woman exam with routine gynecological exam from Last 3 Months or Most Recently Relevant to Health Maintenance Results * (ABNORMAL) POCT urinalysis dipstick (12/19/2024 11:00 AM SUPER[employer]) Color, Urine, POC Yellow Clarity, ur, POC Clear Clear Glucose, ur, POC Negative Negative MG/DL Bilirubin, ur, POC Negative Negative, Small, Moderate, Large Ketones, ur, POC Negative Negative Specific [place], POC 1.005 1.003 - 1.030 Blood, ur, POC Hemolyzed, trace(A) Negative pH, ur, POC 6.0 5.0 - 8.0 Protein, ur, POC Negative Negative Urobilinogen, urine, POC 0.2 0.2 - 1.0 mg/dL Nitrite, ur, POC Negative Negative Leukocytes, ur, POC Negative Negative Lot Number [id number] Urine 12/19/2024 11:0 0 AM SU[employer] Rosalba BENITEZ POINT OF CARE TEST ORDER LATRICIA Final Result * POC Influenza A/B, COVID-19 antigen (12/19/2024 10:39 AM SUPER[employer]) Influenza A Ag, POC Negative Negative [facility] Influenza B Ag, POC Negative Negative [facility] COVID-19 Ag POC Presumptive Negative Presumptive Negative, Invalid [facility] Nasal 12/19/2024 10:3 9 AM SUPER[employer] Rosalba BENITEZ POINT OF CARE TEST ORDER LATRICIA Final Result Performing Organization Address City/State/[facility] Co de Phone Number [facility] [address] [place] [address] * ThinPrep Pap with HPV (09/09/2019 9:57 AM CDT) 09/09/2019 9:57 AM CDT 09/10/2019 7:26 PM CDT [facility] - 09/12/2019 4:19 PM CDT [facility] Department of Pathology [address] [place], [place] [id number] Final Report with Addendum Patient Name: ??TOMINICOLE GREGORIOITLIN Address: ??[facility] [address], ?? [place], [place] ?? Gender: ??F : ??1995 (Age: 24) Service: ??Laboratory Location: ??Lab Hospital #: ??[id number] Patient Type: ?? Ref Lab Taken: ??09/09/2019 Received: ??09/10/2019 Accessioned:: ??09/10/2019 Reported: ??09/12/2019 Physician(s): Nicole Ramos M.D. [facility] Diagnosis: Source of Specimen: ? SCREENING IMAGED PAP w/ HPV Specimen Adequacy: ?- Satisfactory for evaluation; endocervical/transformation zone component present General Category: ?- Negative for intraepithelial lesion or malignancy ?? Bel Walton, CB(ASCP) CB Bettencourt(ASCP) Report Electronically Reviewed and Signed Out By ??CB Bettencourt(ASCP) ??09/12/2019 16:19:56 Addenda: HPV RNA Test Interpretation NEGATIVE for types 16, 18, 31, 33, 35, 39, 45, 51, 52, 56, 58, 59, 66 and 68. Test performed utilizing [employer] Aptima assay. ?? CB Bettencourt(ASCP) ??Report Electronically [...] determined by the Surgical Pathology Department at [facility] as part of an ongoing quality rep program and in compliance with federally mandated [...] characteristics determined by the Surgical Pathology Department [facility]. ??It has not been cleared or approved by the U. S. Food and Drug Administration. Nicole Ramos MD LAB CYTOLOGY ORDERABLE S Final Result Performing Organization Address City/State/[facility] Co de Phone Number [address] [phone] from Last 3 Months or Most Recently Relevant to Health Maintenance Additional Health Concerns Infection Onset Date Last Indicated COVID: Suspected 12/19/2024 12/19/2024 Insurance Massive [facility] Character Booster OOS Character Booster OOS Character Booster OOS Care Teams Warehouse Pricing And Inventory Clerk Relationship Specialty Start Date End Date Stephani Willis MD PCP - General Family Medicine 12/16/19 Stephani Willis MD Family Medicine 12/16/19
--- OUTSIDE RECORDS SUMMARY | 2024-12-19 15:04 | XMS_ITS | Patient Health Summary ---
Author Organization [facility] Address [address] [place] [address] Care Team Providers Care Material Chaser Name Role Phone Stephani Willis MD Primary Care Provider [phone] Note from [facility],non-owned Affiliates and Associated Physician Practices is amultiple site organization consisting of ambulatory clinics and hospital sitesin [place], [place], [place] and [place]. This disclosure is being madepursuant to the Care Everywhere program and may not contain all information available regarding this patient. Last updated 18.[facility] Allergies No known active allergies Immunizations * INFLUENZA VACCINE, QUADR. (FLUZONE; FLULAVAL; FLUARIX; AFLURIA QUADRIVALENT; 6MO+), 0.5 ML (IIV4)(Given 10/19/2018, 09/30/2017) Social History Tobacco Use Types Packs/Day Years [...] Mass Index 20.3 07/13/2015 3:00 PM CDT Procedures * ECHO 2D ONLY WO COLOR OR DOPPLER(Performed 07/15/2015) * ECHO 2D ONLY WO COLOR OR DOPPLER(Performed 07/15/2015) Results * ECHO 2D ONLY WO COLOR OR DOPPLER (07/15/2015 12:55 PM CDT) Only the most recent of2 resultswithin the time period is included. Anatomical Region Laterality Modality Chest Ultrasound 07/15/2015 12:5 5 PM CDT Narrative 07/15/2015 12:55 PM CDT Print Requisition Now?->No Does this order require further action?->No Obdulia Mancia MD ? 07/15/2015 12:55 PM NAME: Jennie Gonzalez : 1995 AGE: 20 y.o. SEX: female Referring Physician: Celso Allen III, MD [address] [place] [id number] Ordering Physician: Dr. Allen Primary Care Physician: PCP NOT DESIGNATED Date of Test: 07/13/15 TAPE#: ?? Furniture Sprayer: BA Height: 5' 5 (165.1 cm) Weight: 122 lb (55.339 kg) BSA: ?? Introduction: Jennie Gonzalez is a 20 y.o. female presenting with chest pain. Indication: Chest Pain Chamber Measurements LV Internal Dimension Systole (cm): 3.4 cm LV Internal Dimension Diastole (cm): 4.6 cm Septal Thickness (cm): 1.1 cm Posterior Wall Thickness (cm): 1.1 cm LV Systolic Function: Normal Aortic Root Measurement (cm): 3.2 cm Left Atrium Measurement (cm): 3.1 cm Right Atrial Size: Normal RV Size: Normal Global RV function: Normal Aortic Valve AV Max (m/s): 1.4 m/s LVOT Diameter (cm): 1.9 cm LVOT max (m/s): 0.9 m/s Normal Aortic Valve Velocities: Yes Mitral Valve Mitral Valve Velocities: ? E (m/s): 0.7 m/s ? A (m/s): 0.4 m/s ? Tissue Doppler Velocities: ? Diastolic Function: Normal Tricuspid Valve Max Tricuspid Valve Velocity (m/s): 0.6 m/s Normal Tricuspid Valve Velocities: Yes Pulmonic Valve Max Pulmonic Valve Velocity (m/s): 0.8 m/s Normal Pulmonic Valve Velocities: Yes OVERALL INTERPRETATION: - Technically Good echocardiogram. - Normal LV size and systolic function. ??Ejection fraction = 55%. - Normal RV size and systolic function. - Normal left atrium. - Normal right atrium. - Normal aortic valve structure and velocities. ??No aortic regurgitation. - Normal mitral valve structure and velocities. ??Mild mitral regurgitation. - Normal LV diastolic function. ?? - Normal tricuspid valve structure and velocities. ?? Mild tricuspid regurgitation. - Calculated right ventricular systolic pressure of <35 mmHg which is normal. - Normal pulmonary valve structure and velocities. ??No pulmonic regurgitation. Supervising Physician: Reading Physician: Obdulia Mancia MD Celso Allen III, MD ECH[facility] Teams Material Chaser Relationship Specialty Start Date End Date Stephani Willis MD [address] [place] [address] PCP - General Family Medicine 09/30/17
--- OUTSIDE RECORDS SUMMARY | 2024-12-19 15:04 | XMS_ITS ---
Author Organization [facility] Address [address] [place] [address] Care Team Providers Care Luggage Attendant Name Role Phone Lazaro Stephani Primary Care Provider UnavailNeel Ly Unavailable [phone] ZZ-Migration, Provider Unavailable Unavailab le [facility] Conversion Encounter Medications Medication SIG (Take, Route, Frequency, Duration) Notes Start Date End Date Status PAZEO 0.7% 1 GTT IN EACH AFFECTED EYE ONCE A DAY for 30 DAYS *Please review for potential replacement for e-prescription and drug interaction check* Active Flonase Allergy Relief 50 MCG/ACT 2 spray(s) intranasally once a day for 30 days Active Famotidine 20 MG 1 tab(s) orally 30 minutes prior to shots for 30 days Active SIT (TRADITIONAL) VARIABLE PER SCHEDULE SUBCUTANEOUS PER SCHEDULE for 1 DAYS *Please review for potential replacement for e-prescription and drug interaction check* Active ZyrTEC Allergy 10 MG 1 tab(s) orally onc e a day prn for 30 day(s) Active Triamcinolone Acetonide 0.1 % 1 domenic applied topically 3 times a day as needed for 7 days Active NASAL WASHES N/A DIRECTED INTRANASALLY NEEDED for 30 *Please review for potential replacement for e-prescription and drug interaction check* Active Singulair 10 MG 1 tab(s) orally 30 minutes prior to shots, shot days only for 30 days Active Auvi-Q 0.3 MG/0.3ML 0.3 mg intramuscularly once for 1 days Active ZyrTEC Allergy 10 MG 1 tab(s) orally onc e a day prn for 30 days Active Multivitamin MULTIPLE VITAMINS 1 CAP(S) ORALLY ONCE A DAY *Please review and pick correct strength-formulat ion from handsomexcutive options. If intended option is not shown, discontinue and re-order from Quick Search* Active Encounters Encounter Location Date Provider Diagnosis [address] [address] 05/04/2024 Provider CINDY-Sarah Allergic rhinitis due to pollen J30.1 ; Other chronic allergic conjunctivitis H10.45 ; Vitamin D deficiency, unspecified E55.9 and Localized skin eruption due to drugs and medicaments taken internally L27.1 Assessments Encounter Date Diagnosis (ICD Code) Assessment Notes Treatment Notes Treatment Clinical Notes Section Notes 05/04/2024 Allergic rhinitis due to pollen (ICD-10 - J30.1) 05/04/2024 Other chronic allergic conjunctivitis (ICD-10 - H10.45) 05/04/2024 Vitamin D deficiency, unspecified (ICD-10 - E55.9) 05/04/2024 Localized skin eruption due to drugs and medicaments taken internally (ICD-10 - L27.1) Plan Of Treatment Medication Medication Name Sig Start Date Stop Date Notes PAZEO 0.7% 1 GTT IN EACH AFFECT ED EYE ONCE A DAY for 30 DAYS *Please review for potential replacement for e-prescription and drug interaction check* Flonase Allergy Relief 50 MCG/ACT 2 spray(s) intranasally once a day for 30 days Famotidine 20 MG 1 tab(s) orally 30 minutes prior to shots for 30 days SIT (TRADITIONAL) VARIABLE PER SCHEDULE SUBCUTANEOUS PER SCHEDULE for 1 DAYS *Please review for potential replacement for e-prescription and drug interaction check* Triamcinolone Acetonide 0.1 % 1 domenic applied topically 3 times a day as needed for 7 days NASAL WASHES N/A DIRECTED INTRANASALLY NEEDED for 30 *Please review for potential replacement for e-prescription and drug interaction check* Singulair 10 MG 1 tab(s) orally 30 minutes prior to shots, shot days only for 30 days Auvi-Q 0.3 MG/0.3ML 0.3 mg intramuscular ly once for 1 days ZyrTEC Allergy 10 MG 1 tab(s) orally onc e a day prn for 30 days Multivitamin MULTIPLE VITAMINS 1 CAP(S) ORALLY ONCE A DAY *Please review and pick correct strength-formulatio n from Medispan options. If intended option is not shown, discontinue and re-order from Quick Search* Progress Notes * Jennie GALLEGOSDOB: [birth year] (29 yo F)Acc No.[id number]:05/04/2024 Patient:?Jennie GALLGEOS Provider:?Provider Migration :1995???Age:29 Y???Sex:Female D ate:05/04/2024 [id number] Pcp:Stephani Willis Subjective: * Chief Complaints: * ???[facility]. [facility] version Encounter. * Medical History:? * Medications:?Taking ZyrTEC A llergy 10 MG Tablet 1 tab(s) orally once a day prn Objective: * Vitals:? Assessment: * Assessment: 1.?Allergic rhinitis due to pollen - J30.1 (Primary)???2.?Other chronic allergic conjunctivitis - H10.45???3.?Vitamin D deficiency, unspecified - E55.9???4.?Localized skin eruption due to drugs and medicaments taken internally - L27.1??? Plan: * Treatment: 2.?Other chronic allergic co njunctivitis? Hold PAZEO SOLUTION, 0.7%, 1 GTT, IN EACH AFFECTED EYE, ONCE A DAY, 30 DAYS, 1, Refills 1, Notes to Pharmacist: *Please review for potential replacement for e-prescription and drug interaction check*.?? 3.?Vitamin D deficiency, uns pecified? Continue Multivitamin CAPSULE, MULTIPLE VITAMINS, 1 CAP(S), ORALLY, ONCE A DAY, Notes to Pharmacist: *Please review and pick correct strength-formulation from Medispan options. If intended option is not shown, discontinue and re-order from Quick Search*.?? 4.?Localized skin eruption d ue to drugs and medicaments taken internally? Hold Triamcinolone Acetonide Cream, 0.1 %, 1 domenic, applied topically, 3 times a day as needed, 7 days, 80 Gram, Refills 0.?? * Billing Information: * Visit Code:? * Procedure Codes:? * Electronic signature of Fiorella WHITE-Migration on 12/19/2024 at 10:02 AM DOCUMENTATION NURSE Sign off status: Pending * Provider:?Provider Migration Date:?05/04 Generated for Kasandra modi/Zhou/Drewsmitting on:?12/19/2024 10:02 AM DOCUMENTATION NURSE
--- OUTSIDE RECORDS SUMMARY | 2024-12-19 15:05 | XMS_ITS ---
Author Organization [facility] Address [address] [place] [address] Care Team Providers Care Railroad Car Repair Supervisor Name Role Phone Stephani Willis Primary Care Provider Neel Lloyd [phone] REASON FOR VISIT Immunotherapy OOP Estimate Encounters Encounter Location Date Provider Diagnosis [facility] [address] [place] [address] 04/23/2024 Neel Martinez Plan Of Treatment No Information Progress Notes * Jennie GALLEGOSDOB: [birth year] (29 yo F)Acc No.[id number]:04/23/2024 Patient:?Jennie GALLEGOS :1995???Age:29 Y???Sex:Female Address:[place], [address] * true * Date:? Generated for Printi ng/Faxing/eTransmitting on:?12/19/2024 03:04 PM DAMPENER
== END 2024-12-19 15:04 | disposition home or self-care (01) ==
PROVIDERS: Emergency Provider Physician Assistant; PCP Family Medicine
DX: U07.1 COVID-19 (principal)
CPT/HCPCS: 36415; 80053; 81001; 81025; 83690; 85025; 87637; 99283; A9270